=== PATIENT | male | born 1945 | race Caucasian/White ===

== ENCOUNTER 2016-05-15 10:08 | Outpatient (CLI) | payer MEDICARE, OTHER | END 2016-05-15 10:09 | disposition home or self-care (01) | DX: I35.9 Nonrheumatic aortic valve disorder, unspecified (principal) ==

== ENCOUNTER 2016-06-26 11:17 | Outpatient (CLI) | payer MEDICARE, OTHER | END 2016-06-26 11:18 | disposition home or self-care (01) | DX: I35.9 Nonrheumatic aortic valve disorder, unspecified (principal) ==

== ENCOUNTER 2016-07-08 11:45 | Outpatient (CLI) | payer MEDICARE, OTHER | END 2016-07-08 11:46 | DX: R05 Cough (principal); I50.9 Heart failure, unspecified ==

== ENCOUNTER 2016-07-16 12:38 | Outpatient (CLI) | payer MEDICARE, OTHER | END 2016-07-16 12:39 | disposition home or self-care (01) | DX: I50.9 Heart failure, unspecified (principal) ==

== ENCOUNTER 2016-07-23 13:51 | Outpatient (CLI) | payer MEDICARE, OTHER | END 2016-07-23 13:52 | disposition home or self-care (01) | DX: I50.9 Heart failure, unspecified (principal) ==

== ENCOUNTER 2016-08-13 12:56 | Outpatient (CLI) | payer MEDICARE, OTHER | END 2016-08-13 12:57 | disposition home or self-care (01) | DX: I50.9 Heart failure, unspecified (principal) ==

== ENCOUNTER 2016-08-17 09:19 | Outpatient (CLI) | payer MEDICARE, OTHER | END 2016-08-17 09:20 | disposition home or self-care (01) | DX: I35.9 Nonrheumatic aortic valve disorder, unspecified (principal); I50.9 Heart failure, unspecified ==

== ENCOUNTER 2016-10-02 10:34 | Outpatient (CLI) | payer MEDICARE, OTHER ==
[2016-10-02 11:23] LABS: CREATININE 1.4 mg/dL (0.6-1.2)
== END 2016-10-02 10:35 | disposition home or self-care (01) ==
LOC: LAB 10:34
PROVIDERS: ATTEND Internal Medicine Cardiovascular Disease
DX: I35.9 Nonrheumatic aortic valve disorder, unspecified (principal); I50.9 Heart failure, unspecified
CPT/HCPCS: 36415; 80048; 85610

== ENCOUNTER 2016-10-06 10:30 | Outpatient (CLI) | payer MEDICARE, OTHER | END 2016-10-06 10:31 | disposition home or self-care (01) | LOC: LAB 10:30 | PROVIDERS: ATTEND Internal Medicine Cardiovascular Disease | DX: I35.9 Nonrheumatic aortic valve disorder, unspecified (principal) | CPT/HCPCS: 85610 ==

== ENCOUNTER 2016-10-14 10:43 | Outpatient (CLI) | payer MEDICARE, OTHER | END 2016-10-14 10:44 | disposition home or self-care (01) | LOC: LAB 10:43 | PROVIDERS: ATTEND Internal Medicine Cardiovascular Disease | DX: I35.9 Nonrheumatic aortic valve disorder, unspecified (principal) | CPT/HCPCS: 85610 ==

== ENCOUNTER 2016-10-28 10:41 | Outpatient (CLI) | payer MEDICARE, OTHER | END 2016-10-28 10:42 | disposition home or self-care (01) | LOC: LAB 10:41 | PROVIDERS: ATTEND Internal Medicine Cardiovascular Disease | DX: I35.9 Nonrheumatic aortic valve disorder, unspecified (principal) | CPT/HCPCS: 85610 ==

== ENCOUNTER 2016-11-20 09:26 | Outpatient (CLI) | payer MEDICARE, OTHER | END 2016-11-20 09:27 | disposition home or self-care (01) | LOC: LAB 09:26 | PROVIDERS: ATTEND Internal Medicine Cardiovascular Disease | DX: I35.9 Nonrheumatic aortic valve disorder, unspecified (principal) | CPT/HCPCS: 85610 ==

== ENCOUNTER 2017-01-01 11:11 | Outpatient (CLI) | payer MEDICARE, OTHER | END 2017-01-01 11:12 | disposition home or self-care (01) | LOC: LAB 11:11 | PROVIDERS: ATTEND Internal Medicine Cardiovascular Disease | DX: I35.9 Nonrheumatic aortic valve disorder, unspecified (principal) | CPT/HCPCS: 85610 ==

== ENCOUNTER 2017-01-25 10:22 | Outpatient (CLI) | payer MEDICARE, OTHER ==
[2017-01-25 11:13] LABS: CALCIUM 9.5 mg/dL (8.5-10.3); PHOSPHORUS 4.7 mg/dL (2.5-4.6); POTASSIUM 5.2 mmol/L (3.5-5.0)
== END 2017-01-25 10:23 | disposition home or self-care (01) ==
LOC: LAB 10:22
PROVIDERS: ATTEND Internal Medicine Cardiovascular Disease
DX: I50.42 Chronic combined systolic (congestive) and diastolic (congestive) heart failure (principal); N18.3 Chronic kidney disease, stage 3 (moderate)
CPT/HCPCS: 36415; 80069

== ENCOUNTER 2017-02-12 09:54 | Outpatient (CLI) | payer MEDICARE, OTHER | END 2017-02-12 09:55 | disposition home or self-care (01) | LOC: LAB 09:54 | PROVIDERS: ATTEND Internal Medicine Cardiovascular Disease | DX: I35.9 Nonrheumatic aortic valve disorder, unspecified (principal) | CPT/HCPCS: 85610 ==

== ENCOUNTER 2017-02-19 10:58 | Outpatient (CLI) | payer MEDICARE, OTHER | END 2017-02-19 10:59 | disposition home or self-care (01) | LOC: LAB 10:58 | PROVIDERS: ATTEND Internal Medicine Cardiovascular Disease | DX: I35.9 Nonrheumatic aortic valve disorder, unspecified (principal) | CPT/HCPCS: 85610 ==

== ENCOUNTER 2017-03-01 11:01 | Outpatient (CLI) | payer MEDICARE, OTHER | END 2017-03-01 11:02 | disposition home or self-care (01) | LOC: LAB 11:01 | PROVIDERS: ATTEND Internal Medicine Cardiovascular Disease | DX: I35.9 Nonrheumatic aortic valve disorder, unspecified (principal) | CPT/HCPCS: 85610 ==

== ENCOUNTER 2017-03-23 11:24 | Outpatient (CLI) | payer MEDICARE, OTHER ==
[2017-03-23 11:49] LABS: CALCIUM 9.3 mg/dL (8.5-10.3); CREATININE 1.5 mg/dL (0.6-1.2); INR 1.9 (0.8-1.2); POTASSIUM 3.7 mmol/L (3.5-5.0); PT - PROTHROMBIN TIME 21.2 secs (9.9-12.6)
== END 2017-03-23 11:25 | disposition home or self-care (01) ==
LOC: LAB 11:24
PROVIDERS: ATTEND Internal Medicine Cardiovascular Disease
DX: I50.9 Heart failure, unspecified (principal); I48.91 Unspecified atrial fibrillation
CPT/HCPCS: 36415; 80048; 85610

== ENCOUNTER 2017-04-14 10:20 | Outpatient (CLI) | payer MEDICARE, OTHER | END 2017-04-14 10:21 | disposition home or self-care (01) | LOC: LAB 10:20 | PROVIDERS: ATTEND Internal Medicine Cardiovascular Disease | DX: I35.9 Nonrheumatic aortic valve disorder, unspecified (principal) | CPT/HCPCS: 85610 ==

== ENCOUNTER 2017-06-03 10:57 | Outpatient (CLI) | payer MEDICARE, OTHER | END 2017-06-03 10:58 | disposition home or self-care (01) | LOC: LAB 10:57 | PROVIDERS: ATTEND Internal Medicine Cardiovascular Disease | DX: I35.9 Nonrheumatic aortic valve disorder, unspecified (principal) | CPT/HCPCS: 85610 ==

== ENCOUNTER 2017-07-21 10:07 | Outpatient (CLI) | payer MEDICARE, OTHER | END 2017-07-21 10:08 | disposition home or self-care (01) | LOC: LAB 10:07 | PROVIDERS: ATTEND Internal Medicine Cardiovascular Disease | DX: I35.9 Nonrheumatic aortic valve disorder, unspecified (principal) | CPT/HCPCS: 85610 ==

== ENCOUNTER 2017-09-01 10:07 | Outpatient (CLI) | payer MEDICARE, OTHER | END 2017-09-01 10:08 | disposition home or self-care (01) | LOC: LAB 10:07 | PROVIDERS: ATTEND Internal Medicine Cardiovascular Disease | DX: I35.9 Nonrheumatic aortic valve disorder, unspecified (principal) | CPT/HCPCS: 85610 ==

== ENCOUNTER 2017-09-15 10:18 | Outpatient (CLI) | payer MEDICARE, OTHER ==
[2017-09-15 10:44] LABS: CALCIUM 9.4 mg/dL (8.5-10.3); CREATININE 1.8 mg/dL (0.6-1.2)
== END 2017-09-15 10:19 | disposition home or self-care (01) ==
LOC: LAB 10:18
PROVIDERS: ATTEND Internal Medicine Cardiovascular Disease
DX: I10 Essential (primary) hypertension (principal)
CPT/HCPCS: 36415; 80048

== ENCOUNTER 2017-10-01 10:55 | Outpatient (CLI) | payer MEDICARE, OTHER | END 2017-10-01 10:56 | disposition home or self-care (01) | LOC: LAB 10:55 | PROVIDERS: ATTEND Internal Medicine Cardiovascular Disease | DX: I35.9 Nonrheumatic aortic valve disorder, unspecified (principal) | CPT/HCPCS: 85610 ==

== ENCOUNTER 2017-11-12 08:33 | Outpatient (CLI) | payer MEDICARE, OTHER | END 2017-11-12 08:34 | disposition home or self-care (01) | LOC: LAB 08:33 | PROVIDERS: ATTEND Internal Medicine Cardiovascular Disease | DX: I35.9 Nonrheumatic aortic valve disorder, unspecified (principal) | CPT/HCPCS: 85610 ==

== ENCOUNTER 2017-12-31 10:21 | Outpatient (CLI) | payer MEDICARE, OTHER | END 2017-12-31 10:22 | disposition home or self-care (01) | LOC: LAB 10:21 | PROVIDERS: ATTEND Internal Medicine Cardiovascular Disease | DX: I35.9 Nonrheumatic aortic valve disorder, unspecified (principal) | CPT/HCPCS: 85610 ==

== ENCOUNTER 2018-02-14 09:40 | Outpatient (CLI) | payer MEDICARE, OTHER | END 2018-02-14 09:41 | disposition home or self-care (01) | LOC: LAB 09:40 | PROVIDERS: ATTEND Internal Medicine Cardiovascular Disease | DX: I35.9 Nonrheumatic aortic valve disorder, unspecified (principal) | CPT/HCPCS: 85610 ==

== ENCOUNTER 2018-03-10 09:50 | Outpatient (CLI) | payer MEDICARE, OTHER ==
[2018-03-10 10:27] LABS: CREATININE 1.6 mg/dL (0.6-1.2)
== END 2018-03-10 09:51 | disposition home or self-care (01) ==
LOC: LAB 09:50
PROVIDERS: ATTEND Internal Medicine Cardiovascular Disease
DX: I50.9 Heart failure, unspecified (principal); I35.9 Nonrheumatic aortic valve disorder, unspecified
CPT/HCPCS: 36415; 80048; 85610

== ENCOUNTER 2018-04-22 08:53 | Outpatient (CLI) | payer MEDICARE, OTHER | END 2018-04-22 08:54 | disposition home or self-care (01) | LOC: LAB 08:53 | PROVIDERS: ATTEND Internal Medicine Cardiovascular Disease | DX: I35.9 Nonrheumatic aortic valve disorder, unspecified (principal) | CPT/HCPCS: 85610 ==

== ENCOUNTER 2018-06-02 09:38 | Outpatient (CLI) | payer MEDICARE, OTHER | END 2018-06-02 09:39 | disposition home or self-care (01) | LOC: LAB 09:38 | PROVIDERS: ATTEND Internal Medicine Cardiovascular Disease | DX: I35.9 Nonrheumatic aortic valve disorder, unspecified (principal) | CPT/HCPCS: 85610 ==

== ENCOUNTER 2018-06-16 09:25 | Outpatient (CLI) | payer MEDICARE, OTHER | END 2018-06-16 09:26 | disposition home or self-care (01) | LOC: LAB 09:25 | PROVIDERS: ATTEND Internal Medicine Cardiovascular Disease | DX: I35.9 Nonrheumatic aortic valve disorder, unspecified (principal) | CPT/HCPCS: 85610 ==

== ENCOUNTER 2018-07-07 14:07 | Outpatient (CLI) | payer MEDICARE, OTHER | END 2018-07-07 14:08 | disposition home or self-care (01) | LOC: LAB 14:07 | PROVIDERS: ATTEND Internal Medicine Cardiovascular Disease | DX: I35.9 Nonrheumatic aortic valve disorder, unspecified (principal) | CPT/HCPCS: 85610 ==

== ENCOUNTER 2018-08-18 10:05 | Outpatient (CLI) | payer MEDICARE, OTHER | END 2018-08-18 10:06 | disposition home or self-care (01) | LOC: LAB 10:05 | PROVIDERS: ATTEND Internal Medicine Cardiovascular Disease | DX: I35.9 Nonrheumatic aortic valve disorder, unspecified (principal) | CPT/HCPCS: 85610 ==

== ENCOUNTER 2018-09-29 10:26 | Outpatient (CLI) | payer MEDICARE, OTHER ==
[2018-09-29 11:08] LABS: CREATININE 1.7 mg/dL (0.6-1.2)
== END 2018-09-29 10:27 | disposition home or self-care (01) ==
LOC: LAB 10:26
PROVIDERS: ATTEND Internal Medicine Cardiovascular Disease
DX: I35.9 Nonrheumatic aortic valve disorder, unspecified (principal); I50.9 Heart failure, unspecified
CPT/HCPCS: 36415; 80048; 85610

== ENCOUNTER 2018-11-09 08:00 | Outpatient (CLI) | payer MEDICARE, OTHER | END 2018-11-09 23:59 | disposition home or self-care (01) | LOC: LAB 08:00 | PROVIDERS: ATTEND Internal Medicine Cardiovascular Disease | DX: I35.9 Nonrheumatic aortic valve disorder, unspecified (principal) | CPT/HCPCS: 85610 ==

== ENCOUNTER 2018-12-22 10:20 | Outpatient (CLI) | payer MEDICARE, OTHER | END 2018-12-22 10:21 | disposition home or self-care (01) | LOC: LAB 10:20 | PROVIDERS: ATTEND Internal Medicine Cardiovascular Disease | DX: I35.9 Nonrheumatic aortic valve disorder, unspecified (principal) | CPT/HCPCS: 85610 ==

== ENCOUNTER 2019-02-02 10:40 | Outpatient (CLI) | payer MEDICARE, OTHER | END 2019-02-02 10:41 | disposition home or self-care (01) | LOC: LAB 10:40 | PROVIDERS: ATTEND Internal Medicine Cardiovascular Disease | DX: I35.9 Nonrheumatic aortic valve disorder, unspecified (principal) | CPT/HCPCS: 85610 ==

== ENCOUNTER 2019-02-17 10:11 | Outpatient (CLI) | payer MEDICARE, OTHER | END 2019-02-17 10:12 | disposition home or self-care (01) | LOC: LAB 10:11 | PROVIDERS: ATTEND Internal Medicine Cardiovascular Disease | DX: I35.9 Nonrheumatic aortic valve disorder, unspecified (principal) | CPT/HCPCS: 85610 ==

== ENCOUNTER 2019-03-27 09:58 | Outpatient (CLI) | payer MEDICARE, OTHER ==
[2019-03-27 10:43] LABS: CALCIUM 9.4 mg/dL (8.5-10.3)
== END 2019-03-27 09:59 | disposition home or self-care (01) ==
LOC: LAB 09:58
PROVIDERS: ATTEND Internal Medicine Cardiovascular Disease
DX: I35.9 Nonrheumatic aortic valve disorder, unspecified (principal); I50.9 Heart failure, unspecified
CPT/HCPCS: 36415; 80048; 85610

== ENCOUNTER 2019-05-04 10:03 | Outpatient (CLI) | payer MEDICARE, OTHER | END 2019-05-04 10:04 | disposition home or self-care (01) | LOC: LAB 10:03 | PROVIDERS: ATTEND Internal Medicine Cardiovascular Disease | DX: Z53.9 Procedure and treatment not carried out, unspecified reason (principal) ==

== ENCOUNTER 2019-05-04 10:08 | Outpatient (CLI) | payer MEDICARE, OTHER | END 2019-05-04 10:09 | disposition home or self-care (01) | LOC: LAB 10:08 | PROVIDERS: ATTEND Internal Medicine Cardiovascular Disease | DX: I35.9 Nonrheumatic aortic valve disorder, unspecified (principal) | CPT/HCPCS: 85610 ==

== ENCOUNTER 2019-05-19 13:52 | Outpatient (CLI) | payer MEDICARE, OTHER | END 2019-05-19 13:53 | disposition home or self-care (01) | LOC: DI 13:52 | PROVIDERS: ATTEND Internal Medicine Cardiovascular Disease | DX: I50.9 Heart failure, unspecified (principal); I51.7 Cardiomegaly | CPT/HCPCS: 93306 ==

== ENCOUNTER 2019-05-22 15:18 | Outpatient (CLI) | payer MEDICARE, OTHER ==
[2019-05-22 15:41] LABS: CALCIUM 9.1 mg/dL (8.5-10.3); CREATININE 2.4 mg/dL (0.6-1.2)
== END 2019-05-22 15:19 | disposition home or self-care (01) ==
LOC: LAB 15:18
PROVIDERS: ATTEND Internal Medicine
DX: I50.9 Heart failure, unspecified (principal)
CPT/HCPCS: 36415; 80048

== ENCOUNTER 2019-06-02 11:24 | Outpatient (CLI) | payer MEDICARE, OTHER ==
[2019-06-02 12:10] LABS: BASOPHILS % (AUTO) 0.3 %; EOSINOPHILS # (AUTO) 0.3 10^3/uL (0.0-0.7); EOSINOPHILS % (AUTO) 3.8 %; HGB - HEMOGLOBIN 11.5 g/dL (14.0-18.0); LYMPHOCYTES # (AUTO) 0.9 10^3/uL (1.5-3.5); LYMPHOCYTES % (AUTO) 14.1 %; MEAN CORPUSCULAR HEMOGLOBIN 30.2 pg (27.0-31.0); MEAN CORPUSCULAR HGB CONC 31.3 g/dL (32.0-36.0); MEAN CORPUSCULAR VOLUME 96.6 fL (80.0-94.0); MEAN PLATELET VOLUME 11.7 fL (7.4-11.4); MONOCYTES % (AUTO) 14.7 %; NEUTROPHILS # (AUTO) 4.4 10^3/uL (1.5-6.6); NEUTROPHILS % (AUTO) 66.6 %; PLT - PLATELET COUNT 174 10^3/uL (130-450); RED BLOOD COUNT 3.81 10^6/uL (4.70-6.10); RED CELL DISTRIBUTION WIDTH 16.1 % (12.0-15.0); WHITE BLOOD COUNT 6.6 x10^3/uL (4.8-10.8)
[2019-06-02 13:20] LABS: ALBUMIN 3.9 g/dL (3.2-5.5); ALBUMIN/GLOBULIN RATIO 1.3 (1.0-2.2); ALKALINE PHOSPHATASE 61 IU/L (42-121); ALT ALANINE AMINOTRANSFERASE 61 IU/L (10-60); AST ASPARTATE AMINOTRANSFERASE 42 IU/L (10-42); BILIRUBIN,TOTAL 1.4 mg/dL (0.2-1.0); CALCIUM 9.2 mg/dL (8.5-10.3); CARBON DIOXIDE - CO2 29 mmol/L (21-32); CHLORIDE 95 mmol/L (101-111); CHOL/HDL RATIO 2.5 (<5.0); CHOLESTEROL 49 mg/dL; CREATININE 2.3 mg/dL (0.6-1.2); GFR - MDRD 28 (>89); GLUCOSE 98 mg/dL (70-100); HDL CHOLESTEROL 20 mg/dL; LDL CHOLESTEROL,CALCULATED 20 mg/dL; SODIUM 139 mmol/L (135-145); VLDL CHOLESTEROL 9 mg/dL
[2019-06-02 13:23] LABS: BUN - BLOOD UREA NITROGEN 94 mg/dL (6-20)
== END 2019-06-02 11:25 | disposition home or self-care (01) ==
LOC: LAB 11:24
PROVIDERS: ATTEND Internal Medicine Cardiovascular Disease
DX: I50.9 Heart failure, unspecified (principal); Z95.2 Presence of prosthetic heart valve; E78.5 Hyperlipidemia, unspecified
CPT/HCPCS: 36415; 80053; 80061; 83721; 83880; 85025

== ENCOUNTER 2019-06-05 10:37 | Outpatient (CLI) | payer MEDICARE, OTHER ==
[2019-06-05 12:17] LABS: CALCIUM 9.2 mg/dL (8.5-10.3); CREATININE 2.1 mg/dL (0.6-1.2)
== END 2019-06-05 10:38 | disposition home or self-care (01) ==
LOC: LAB 10:37
PROVIDERS: ATTEND Internal Medicine Cardiovascular Disease
DX: I50.9 Heart failure, unspecified (principal)
CPT/HCPCS: 36415; 80048

== ENCOUNTER 2019-06-22 13:40 | Outpatient (CLI) | payer MEDICARE, OTHER ==
[2019-06-22 14:58] LABS: BUN - BLOOD UREA NITROGEN 72 mg/dL (6-20); CALCIUM 9.1 mg/dL (8.5-10.3); CARBON DIOXIDE - CO2 27 mmol/L (21-32); CHLORIDE 100 mmol/L (101-111); CREATININE 2.1 mg/dL (0.6-1.2); DIGOXIN 1.4 ng/mL; GFR - MDRD 31 (>89); GLUCOSE 103 mg/dL (70-100); SODIUM 137 mmol/L (135-145)
== END 2019-06-22 13:41 | disposition home or self-care (01) ==
LOC: LAB 13:40
PROVIDERS: ATTEND Internal Medicine Cardiovascular Disease
DX: I50.9 Heart failure, unspecified (principal)
CPT/HCPCS: 36415; 80048; 80162; 83880

== ENCOUNTER 2019-06-29 15:44 | Outpatient (CLI) | payer MEDICARE, OTHER ==
[2019-06-29 16:53] LABS: BUN - BLOOD UREA NITROGEN 53 mg/dL (6-20); CALCIUM 8.8 mg/dL (8.5-10.3); CARBON DIOXIDE - CO2 27 mmol/L (21-32); CHLORIDE 103 mmol/L (101-111); CREATININE 1.9 mg/dL (0.6-1.2); DIGOXIN 1.5 ng/mL; GFR - MDRD 35 (>89); GLUCOSE 97 mg/dL (70-100); SODIUM 140 mmol/L (135-145)
== END 2019-06-29 15:45 | disposition home or self-care (01) ==
LOC: LAB 15:44
PROVIDERS: ATTEND Internal Medicine Cardiovascular Disease
DX: I50.9 Heart failure, unspecified (principal); I35.9 Nonrheumatic aortic valve disorder, unspecified
CPT/HCPCS: 36415; 80048; 80162; 83880; 85610

== ENCOUNTER 2019-07-10 14:58 | Outpatient (CLI) | payer MEDICARE, OTHER ==
[2019-07-10 15:45] LABS: CALCIUM 9.2 mg/dL (8.5-10.3); CREATININE 1.9 mg/dL (0.6-1.2); MAGNESIUM 2.5 mg/dL (1.7-2.8)
== END 2019-07-10 14:59 | disposition home or self-care (01) ==
LOC: LAB 14:58
PROVIDERS: ATTEND Internal Medicine Cardiovascular Disease
DX: I35.9 Nonrheumatic aortic valve disorder, unspecified (principal); I50.9 Heart failure, unspecified; I42.8 Other cardiomyopathies
CPT/HCPCS: 36415; 80048; 83735; 85610

== ENCOUNTER 2019-07-20 15:19 | Outpatient (CLI) | payer MEDICARE, OTHER | END 2019-07-20 15:20 | disposition home or self-care (01) | LOC: LAB 15:19 | PROVIDERS: ATTEND Internal Medicine Cardiovascular Disease | DX: I35.9 Nonrheumatic aortic valve disorder, unspecified (principal) | CPT/HCPCS: 85610 ==

== ENCOUNTER 2019-07-29 19:33 | Outpatient (CLI) | payer MEDICARE, OTHER | END 2019-07-29 19:34 | disposition critical access hospital (66) | LOC: EMS 19:33 | PROVIDERS: ATTEND Surgery | DX: R05 Cough (principal); R09.89 Other specified symptoms and signs involving the circulatory and respiratory systems; R53.1 Weakness | CPT/HCPCS: A0425; A0429 ==

== ENCOUNTER 2019-07-29 19:48 | Inpatient (IN) | payer MEDICARE, OTHER ==
--- NOTE | 2019-07-29 19:46 | ED Physician Documentation ---
History of Present Illness - Stated complaint Stated Complaint: COUGH - History obtained from History obtained from: Patient, EMS (the patient is a 73 y/o male with a hx of aortic valve replacement complains of worsening cough, congestion, sob over the last 1-2 days. he reports subjective chills and fevers and cough. denies recent travel outside the country, fleming/neck pain/rashes. reports worsening le edema, productive cough. he does take coumadin as well as dig.) Review of Systems Constitutional: reports: Fever, Chills, Myalgias, Reviewed and negative Eyes: reports: Reviewed and negative Ears: reports: Reviewed and negative Nose: reports: Reviewed and negative Throat: reports: Reviewed and negative Cardiac: reports: Palpitations Respiratory: reports: Dyspnea, Cough, Wheezing GI: reports: Reviewed and negative : reports: Reviewed and negative Skin: reports: Reviewed and negative Musculoskeletal: reports: Reviewed and negative Neurologic: reports: Reviewed and negative Psychiatric: reports: Reviewed and negative Endocrine: reports: Reviewed and negative Immunocompromised: reports: Reviewed and negative PD PAST MEDICAL HISTORY - Present Medications Home Medications: Ambulatory Orders Medication Instructions Recorded Confirmed Warfarin [Coumadin] 10 mg PO DAILY 04/16/13 07/29/19 carvediloL [Coreg] 6.25 mg PO BID 04/16/13 07/29/19 Cyclobenzaprine [Flexeril] 10 mg TID PRN 07/29/19 07/29/19 Digoxin [Lanoxin] 125 mcg PO DAILY 07/29/19 07/29/19 Losartan Potassium [Cozaar] 50 mg DAILY 07/29/19 07/29/19 Simvastatin 40 mg DAILY 07/29/19 07/29/19 Torsemide 80 mg DAILY 07/29/19 07/29/19 traMADol [Ultram] 50 mg QID PRN 07/29/19 07/29/19 - Allergies Allergies/Adverse Reactions: Allergies Allergy/AdvReac Type Severity Reaction Status Date / Time No Known Drug Allergies Allergy Verified 07/29/19 19:57 PD ED PE NORMAL - Vitals Vital signs reviewed: Yes - General General: Alert and oriented X 3, Other (ill but non toxic appearing 73 y/o m actively coughing and sob) - HEENT HEENT: Atraumatic, PERRL - Neck Neck: Supple, no meningeal sign, No JVD - Cardiac Cardiac: No murmur, Strong equal pulses, Other (irregular rhythm) - Respiratory Respiratory: Other (diffuse crackles throughout bilateral lung [place], trachea midline. 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, No motor deficit, No sensory deficit, Normal speech - Psych Psych: Normal mood, Normal affect Results - Vitals Vitals: Vital Signs - 24 hr 07/29/19 07/29/19 07/29/19 19:56 20:38 20:57 Temperature 36.4 C L 36.1 C L Heart Rate 67 76 74 Respiratory 18 19 14 Rate Blood Pressure 109/62 96/68 94/71 O2 Saturation 94 95 96 07/29/19 21:20 Temperature Heart Rate Respiratory Rate Blood Pressure O2 Saturation 86 L Oxygen O2 Source Room air Oxygen Flow Rate 2 - EKG (time done) 20:09 Rate: Other (no stemi) - Labs Labs: Laboratory Tests 07/29/19 07/29/19 07/29/19 20:18 20:18 20:18 WBC 4.9 RBC 4.30 L Hgb 12.5 L Hct 40.0 L MCV 93.0 MCH 29.1 MCHC 31.3 L RDW 18.4 H Plt Count 142 MPV 11.9 H Neut # (Auto) 3.0 Lymph # (Auto) 1.0 L [place] # (Auto) 0.8 Eos # (Auto) 0.1 Baso # (Auto) 0.0 Absolute Nucleated RBC 0.00 Nucleated RBC % 0.0 PT 44.0 H INR 4.2 H APTT 50.0 H Sodium 134 L Potassium 4.0 Chloride 94 L Carbon Dioxide 27 Anion Gap 13.0 BUN 73 H Creatinine 2.7 H Estimated GFR (MDRD) 23 L Glucose 108 H Lactic Acid Calcium 8.8 Magnesium 2.4 Total Bilirubin 1.5 H Direct Bilirubin AST 31 ALT 16 Alkaline Phosphatase 121 Total Creatine Kinase 162 Troponin I High Sens B-Natriuretic Peptide Total Protein 7.1 Albumin 3.6 Globulin 3.5 Albumin/Globulin Ratio 1.0 Lipase 34 Urine Color Urine Clarity Urine pH Ur Specific [place] Urine Protein Urine Glucose (UA) Urine Ketones Urine Occult Blood Urine Nitrite Urine Bilirubin Urine Urobilinogen Ur Leukocyte Esterase Ur Microscopic Review Urine Culture Comments Last Dose Date Last Dose Time Digoxin Influenza A (Rapid) Influenza B (Rapid) 07/29/19 07/29/19 07/29/19 20:18 20:18 20:18 WBC RBC Hgb Hct MCV MCH MCHC RDW Plt Count MPV Neut # (Auto) Lymph # (Auto) [place] # (Auto) Eos # (Auto) Baso # (Auto) Absolute Nucleated RBC Nucleated RBC % PT INR APTT Sodium Potassium Chloride Carbon Dioxide Anion Gap BUN Creatinine Estimated GFR (MDRD) Glucose Lactic Acid 2.4 H Calcium Magnesium Total Bilirubin Direct Bilirubin 0.7 H AST ALT Alkaline Phosphatase Total Creatine Kinase Troponin I High Sens B-Natriuretic Peptide 1197 H Total Protein Albumin Globulin Albumin/Globulin Ratio Lipase Urine Color Urine Clarity Urine pH Ur Specific [place] Urine Protein Urine Glucose (UA) Urine Ketones Urine Occult Blood Urine Nitrite Urine Bilirubin Urine Urobilinogen Ur Leukocyte Esterase Ur Microscopic Review Urine Culture Comments Last Dose Date UNKNOWN Last Dose Time UNKNOWN Digoxin 2.2 Influenza A (Rapid) Influenza B (Rapid) 07/29/19 07/29/19 07/29/19 20:18 20:30 20:45 WBC RBC Hgb Hct MCV MCH MCHC RDW Plt Count MPV Neut # (Auto) Lymph # (Auto) [place] # (Auto) Eos # (Auto) Baso # (Auto) Absolute Nucleated RBC Nucleated RBC % PT INR APTT Sodium Potassium Chloride Carbon Dioxide Anion Gap BUN Creatinine Estimated GFR (MDRD) Glucose Lactic Acid Calcium Magnesium Total Bilirubin Direct Bilirubin AST ALT Alkaline Phosphatase Total Creatine Kinase Troponin I High Sens 109.5 H* B-Natriuretic Peptide Total Protein Albumin Globulin Albumin/Globulin Ratio Lipase Urine Color YELLOW Urine Clarity CLEAR Urine pH 5.0 Ur Specific [place] 1.020 Urine Protein TRACE Urine Glucose (UA) NEGATIVE Urine Ketones NEGATIVE Urine Occult Blood NEGATIVE Urine Nitrite NEGATIVE Urine Bilirubin NEGATIVE Urine Urobilinogen 0.2 (NORMAL) Ur Leukocyte Esterase NEGATIVE Ur Microscopic Review NOT INDICATED Urine Culture Comments NOT INDICATED Last Dose Date Last Dose Time Digoxin Influenza A (Rapid) Negative Influenza B (Rapid) Negative PD MEDICAL DECISION MAKING - ED course Complexity details: reviewed old records, reviewed results, re-evaluated patient (21:25 ambulated patient he is hypoxic on room air anywhere from 70-80s on room air, patient tachypneic and sob ambulating.), considered differential (ACS, PNA, FLU, CHF, PULM EDEMA, NOELLE, ARF, PE, PLEURAL EFFUSIONS, DVT. ), d/w patient, d/w oracle distribution consultant - Consults Consults: Consulted (name) (dr. reyes), Discussed case with, Request oracle distribution consultant evaluate patient, Request oracle distribution consultant admit patient (will admit) - Critical Care Time Includes: Direct patient care, Review records, Reassess patient, Document care, Coordinate care, Medical consult Data interpretation: Labs, Pulse ox, CXR Procedures included in critical care time: Peripheral IV Procedures excluded from critical care time: EKG Departure - Departure Disposition: 66 [facility] DC/Xfer Clinical Impression: Hypoxia, Acute kidney injury CHF (congestive heart failure) Qualifiers: Heart failure type: unspecified Heart failure chronicity: unspecified Qualified Code(s): I50.9 - Heart failure, unspecified Condition: Stable
[2019-07-29 20:27] LABS: BASOPHILS % (AUTO) 0.2 %; EOSINOPHILS # (AUTO) 0.1 10^3/uL (0.0-0.7); EOSINOPHILS % (AUTO) 2.8 %; HGB - HEMOGLOBIN 12.5 g/dL (14.0-18.0); LYMPHOCYTES % (AUTO) 19.3 %; MEAN CORPUSCULAR HEMOGLOBIN 29.1 pg (27.0-31.0); MEAN CORPUSCULAR HGB CONC 31.3 g/dL (32.0-36.0); MEAN PLATELET VOLUME 11.9 fL (7.4-11.4); MONOCYTES # (AUTO) 0.8 10^3/uL (0.0-1.0); MONOCYTES % (AUTO) 16.6 %; NEUTROPHILS % (AUTO) 60.5 %; PLT - PLATELET COUNT 142 10^3/uL (130-450); RED CELL DISTRIBUTION WIDTH 18.4 % (12.0-15.0); WHITE BLOOD COUNT 4.9 x10^3/uL (4.8-10.8)
[2019-07-29 20:32] LABS: INR 4.2 (0.8-1.2)
[2019-07-29 20:49] LABS: BILIRUBIN,URINE NEGATIVE (NEGATIVE); GLUCOSE, URINE (UA) NEGATIVE (NEGATIVE); KETONES,URINE (UA) NEGATIVE (NEGATIVE); LEUKOCYTE ESTERASE, URINE NEGATIVE (NEGATIVE); NITRITE,URINE NEGATIVE (NEGATIVE); OCCULT BLOOD,URINE NEGATIVE (NEGATIVE); PROTEIN,URINE TRACE mg/dL (NEGATIVE); UROBILINOGEN,URINE 0.2 (NORMAL) E.U./dL (NORMAL)
[2019-07-29 20:50] LABS: BILIRUBIN,DIRECT 0.7 mg/dL (0.1-0.5); DIGOXIN 2.2 ng/mL
[2019-07-29 20:52] LABS: CLARITY,URINE CLEAR (CLEAR)
[2019-07-29 20:59] LABS: ALBUMIN 3.6 g/dL (3.2-5.5); BILIRUBIN,TOTAL 1.5 mg/dL (0.2-1.0); CALCIUM 8.8 mg/dL (8.5-10.3); CREATININE 2.7 mg/dL (0.6-1.2); MAGNESIUM 2.4 mg/dL (1.7-2.8); TOTAL PROTEIN 7.1 g/dL (6.7-8.2)
--- NOTE | 2019-07-29 21:04 | XRAY Report ---
Reason: cough Procedure Date: 07/29/2019 Accession Number: [id number] / [id number] Procedure: XR - Chest 1 View X-Ray CPT Code: 41741 Final Report FULL RESULT: EXAM: CHEST RADIOGRAPHY EXAM DATE: 07/29/2019 08:28 PM. CLINICAL HISTORY: Cough. COMPARISON: CHEST 2 VIEW PA/LAT 01/01/2017 3:36 PM. TECHNIQUE: 1 view. FINDINGS: Lungs/Pleura: Stable linear atelectasis or scarring in right mid to upper lung. Mild atelectasis or scarring at right lung base. No new pulmonary opacities. No pulmonary edema. No pleural effusion or pneumothorax. Mediastinum: Stable moderate enlargement of cardiac silhouette. Postsurgical changes of the chest. Cardiac device in stable position. Other: None. IMPRESSION: 1. Probable atelectasis and scarring in the right lung, similar compared to previous radiograph. No definite new focal opacities. 2. Cardiomegaly and cardiac device. RADIA
[2019-07-29] MEDS ORDERED: FUROSEMIDE 40 MG/4 ML VIAL IVP STA ×2 (21:22→21:38)
[2019-07-29] MEDS ORDERED: ONDANSETRON 4 MG/2 ML VIAL IVP PRN (21:29)
--- NOTE | 2019-07-29 21:41 | HISTORY & PHYSICAL EXAMINATION ---
Chief Complaint - Chief Complaint Chief Complaint: Cough History of Present Illness - Admitted From Admitted From:: Home - History Obtained From Records Reviewed: Yes History obtained from: Patient, ER Physician, EMR - History of Present Illness HPI Comment/Other: This is a 73-year-old male with a history of what appears to be idiopathic cardiomyopathy, chronic systolic heart failure with an EF of 15 to 20% status post ICD, history of aortic valve replacement with mechanical valve on coumadin, paroxysmal atrial fibrillation, chronic kidney disease who presents today complaining of a worsening cough over the past 2 to 3 days. He states his cough began about 3 days ago and he has occasional sputum production. He reports no dyspnea but states he has not gotten to ambulate as much as he would like as he has just felt a little weak and the cough has been quite bothersome. He reports that he normally sleeps on his side but lately he has been sleeping upright due to the cough. He has also noticed some worsening lower extremity edema. He r eports no chest pain, fevers, chills. He denies any recent sick contacts or travel. 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 Velasquez. Patient reports he has been compliant with medications he took torsemide 80 mg earlier today. He states he has not really been eating much because he is in the process of getting new dentures or implants. He tells me that his previous dry weight was 165 lbs but that he is currently now 163 lbs despite his worsening lower extremity edema. He feels like he has been losing weight due to his poor oral intake. He states that his cardiomyopathy is of an unknown etiology. He denies any history of heart disease and denies a history of CABG or stents in the past. His INR is elevated and he states this has been poorly controlled since his decreased oral intake. He reports no recent bleeding. In the emergency department, he was found to be afebrile with temperature of 3 6.1 C. His heart was in the 70s and he was in a paced rhythm. Blood pressure was stable at 94/71. He was initially saturating well on room air but when he ambulated, his oxygen saturation dipped into the 70s and 80s on room air. This has improved to the mid 90s on 2 L of oxygen via nasal cannula. Lab revealed a sodium of 134, BUN of 73, creatinine of 2.7. His lactic acid is mildly elevated at 2.4. His BNP is elevated at 1197 and his troponin is 109.5. Influenza was negative. Given his hypoxia with exertion, medicine was consulted for admission. He did receive 40 mg of IV Lasix in the emergency department. I did discuss goals of care the patient he would like to be a full code. History - Past Medical History Cardiovascular: reports: Congestive heart failure, Hypertension, High choles terol, Atrial fibrillation, Valve disorder MRSA Hx?: No - Past Surgical History Cardiovascular: reports: Valve replacement (Mechanical AV. [facility] in 2009 at [facility] in [place].), Pacemaker, AICD - Family & Social History Family History Comment/Other: He does not recall any family history to his knowledge. Living arrangement: At home Living Situation: With family Social History Notes: He lives at home and his daughter is currently staying with him. He denies smoking and alcohol use. He previously worked for [employer]. He retired 12 years ago. - Substance History Use: Uses substance without health or social issues: NONE - POLST Patient has POLST: No Meds/Allgy - Home Medications Home Medications: Ambulatory Orders Medication Instructions Recorded Confirmed Warfarin [Coumadin] 10 mg PO DAILY 04/16/13 07/29/19 carvediloL [Coreg] 6.25 mg PO BID 04/16/13 07/29/19 Cyclobenzaprine [Flexeril] 10 mg TID PRN 07/29/19 07/29/19 Digoxin [Lanoxin] 125 mcg PO DAILY 07/29/19 07/29/19 Losartan Potassium [Cozaar] 50 mg DAILY 07/29/19 07/29/19 Simvastatin 40 mg DAILY 07/29/19 07/29/19 Torsemide 80 mg DAILY 07/29/19 07/29/19 traMADol [Ultram] 50 mg QID PRN 07/29/19 07/29/19 - Allergies Allergies/Adverse Reactions: Allergies Allergy/AdvReac Type Severity Reaction Status Date / Time No Known Drug Allergies Allergy Verified 07/29/19 19:57 Review of Systems - Constitutional Constitutional: reports: Weakness, Poor appetite, Weight loss. denies: Fever, Chills - Cardiovascular Cariovascular: reports: Edema. denies: Chest pain, Exertional dyspnea, Decr. exercise tolerance - Respiratory Respiratory: reports: Cough, Sputum production, Orthopnea. denies: SOB at rest, SOB with exertion - Gastrointestinal Gastrointestinal: denies: Abdominal pain, Constipation, Diarrhea, Nausea, Vomiting - Genitourinary Genitourinary: reports: Frequency. denies: Dysuria, Urgency - Musculoskeletal Musculoskeletal: denies: Muscle pain, Muscle weakness - Integumentary Integumentary: denies: Rash - Neurological Neurological: denies: General weakness, Focal weakness - Endocrine Endocrine: reports: Polyuria - Hematologic/Lymphatic Hematologic/Lymphatic: denies: Anemia, Bruising, Bleeding tendencies Prior Level of Functionality: He states that he is normally independent with his ADLs. Exam - Vital Signs Reviewed Vital Signs: Yes Vital Signs: Vital Signs x48h Temp Pulse Resp BP Pulse Ox 07/29/19 21:31 77 22 106/65 98 07/29/19 21:20 86 L 07/29/19 20:57 36.1 C L 74 14 94/71 96 07/29/19 20:38 76 19 96/68 95 07/29/19 19:56 36.4 C L 67 18 109/62 94 - Physical Exam General Appearance: positive: No acute distress, Alert Eyes Bilateral: positive: Normal inspection ENT: positive: ENT inspection nml Neck: positive: Nml inspection Respiratory: positive: No respiratory distress, Other (Has multiple episodes of coughing fits while speaking to him. Diminished breath sounds.) Cardiovascular: positive: Irregularly irregular, Other (Mechanical heart valve click present.). negative: Tachycardia, Bradycardia Abdomen: positive: Non-tender, Nml bowel sounds, No distention. negative: Tenderness Skin: positive: No rash, Warm, Dry, Other (He has chronic dermatitis over his bilateral lower extremities. There is approximately 4 x 3 cm ulceration over the medial aspect of his left lower extremity superior to the ankle. No purulent discharge or tenderness.) Extremities: positive: Full ROM, Pedal edema (He has +2 to +3 pitting edema in his bilateral lower extremities from his feet up to his knees) Neurologic/Psychiatric: positive: Oriented x3, Motor nml. negative: Disoriented to person, Disoriented to place, Disoriented to time Conclusion/Plan - Problem List (1) Acute on chronic systolic heart failure Conclusion/Plan: Suspect this is the cause of his hypoxia and dyspnea on exertion. His BNP is elevated at nearly 1200 which is improved compared to late June but still above his baseline of what appears to be around 600. His chest x-ray does not show any obvious pulmonary edema or vascular congestion but he does have significant lower extremity edema and orthopnea. He was given 40 mg's IV in the emergency department we will give him another 20mg IV given his creatinine is elevated at 2.7. We will continue him on 60 mg twice daily. We will continue his home carvedilol but hold losartan given his acute kidney injury. We will continue supplemental oxygen to maintain oxygen saturation greater than 92%. Low-sodium diet and fluid restriction of 2 L. BNP in the morning. (2) Hypoxia Conclusion/Plan: He was hypoxic in the 70s and 80s on room air which improved to the mid 90s on 2 L of oxygen via nasal cannula. Suspect this secondary to heart failure exacerbation. No obvious infiltrate on x-ray to suggest pneumonia. We will continue to diurese him with IV Lasix and wean him off oxygen as tolerated. (3) Elevated troponin Conclusion/Plan: Troponin is elevated 109.5 but he reports no chest pain. EKG showed a ventricular paced rhythm. Suspect this is likely demand ischemia given the heart failure and acute kidney injury. He reports no prior history of heart disease, CABG, cardiac stenting. He did have a stress test over 5 years ago which did not suggest ischemia. He is not on aspirin at home. We will continue to trend his troponin and monitor him on telemetry. (4) Acute kidney injury superimposed on CKD Conclusion/Plan: Creatinine is elevated at 2.7 and his baseline appears to be around 2-2.3. Suspect this is likely prerenal acute kidney injury from heart failure. We will diuresis with IV Lasix and monitor his renal function and urine output. We will hold his losartan for the time being. (5) Cardiomyopathy Conclusion/Plan: He tells me this is idiopathic cardiomyopathy. His last echocardiogram on May 19, 2019 showed a severely dilated left ventricle with an EF of 15-20%. He also had severe RV dilatation with severely reduced systolic function. His bioprosthetic aortic valve appeared to be functioning normally. He did have m oderate mitral regurgitation and severe tricuspid regurgitation. Given he had an echocardiogram 2 months ago, there likely is no indication to repeat another one. We will continue to treat his heart failure as mentioned above. He does follow with Dr. Velasquez of cardiology here at the [facility]. (6) Elevated INR Conclusion/Plan: His INR is elevated at 4.2. There is no evidence of bleeding. We will hold his Coumadin and monitor his INR on a daily basis. No role for vitamin K at this point. (7) Paroxysmal atrial fibrillation Conclusion/Plan: He has a history of atrial fibrillation and he is on Coumadin. He is currently ventricularly paced. We will continue his digoxin and carvedilol. Monitor on telemetry. (8) History of aortic valve replacement with bioprosthetic valve Conclusion/Plan: History of mechanical aortic valve replacement back in 2008 at [facility] in [place]. This is a [facility] mechanical aortic valve. Last echocardiogram showed it is functioning normally. He is on Coumadin which will be held for the time being given his supratherapeutic INR. Goal INR is 2.5-3.5 - Lab Results Lab results reviewed: Yes Omar Bones: 07/29/19 20:18 07/29/19 20:18 - Diagnostic Imaging Results Diagnostic Imaging Results: positive: Final report reviewed - EKG Results EKG Interpreted Independently: Yes EKG Findings: EKG shows a ventricularly paced rhythm. Core Measures - Anticipated LOS I expect patient to be DC'd or transferred within 96 hours.: Yes - Issues Hospital Issues and Management Plan: 73-year-old male with chronic systolic heart failure and what appears to be id iopathic cardiomyopathy presents with a cough. He is on to be hypoxic with exertion likely from acute on chronic heart failure. We will admit him for IV diuresis. - DVT/VTE - Prophylaxis VTE/DVT Device ordered at admit?: Yes VTE/DVT Prophylaxis med ordered at admit?: No Not Ordered - Medical Reason: Not indicated
--- NOTE | 2019-07-29 23:03 | Ultrasound Report ---
Reason: leg swelling dvt Procedure Date: 07/29/2019 Accession Number: [id number] / [id number] Procedure: US - Duplex Ext Veins Bilateral CPT Code: Final Report FULL RESULT: EXAM: BILATERAL LOWER EXTREMITY VENOUS ULTRASOUND EXAM DATE: 07/29/2019 10:45 PM. CLINICAL HISTORY: Leg swelling. COMPARISON: None. TECHNIQUE: Real-time sonographic vascular imaging was performed by the stereoptic projection topographer through the lower extremities utilizing both color-flow and Doppler spectral analysis. Multiple customer development representative static images were saved for review. FINDINGS: Right: Common Femoral Vein (CFV): No evidence of thrombus. CFV-GSV Junction: No evidence of thrombus. Profunda Femoral Vein (PFV): No evidence of thrombus. Femoral Vein (FV) Prox: No evidence of thrombus. Femoral Vein (FV) Mid: No evidence of thrombus. Femoral Vein (FV) Dist: No evidence of thrombus. Popliteal Vein: No evidence of thrombus. Posterior Tibial Veins: No evidence of thrombus. Peroneal Veins: No evidence of thrombus. Left: Common Femoral Vein (CFV): No evidence of thrombus. CFV-GSV Junction: No evidence of thrombus. Profunda Femoral Vein (PFV): No evidence of thrombus. Femoral Vein (FV) Prox: No evidence of thrombus. Femoral Vein (FV) Mid: No evidence of thrombus. Femoral Vein (FV) Dist: No evidence of thrombus. Popliteal Vein: No evidence of thrombus. Posterior Tibial Veins: No evidence of thrombus. Peroneal Veins: No evidence of thrombus. Other: None. IMPRESSION: No evidence for deep venous thrombosis. RADIA
[2019-07-30] MEDS: BENZONATATE 100 MG CAPSULE PO PRN ×3 (00:28→16:09)
[2019-07-30 04:59] LABS: BASOPHILS % (AUTO) 0.4 %; EOSINOPHILS # (AUTO) 0.2 10^3/uL (0.0-0.7); EOSINOPHILS % (AUTO) 3.7 %; HGB - HEMOGLOBIN 12.5 g/dL (14.0-18.0); LYMPHOCYTES # (AUTO) 1.1 10^3/uL (1.5-3.5); MEAN CORPUSCULAR HEMOGLOBIN 28.7 pg (27.0-31.0); MEAN CORPUSCULAR HGB CONC 31.3 g/dL (32.0-36.0); MEAN CORPUSCULAR VOLUME 91.7 fL (80.0-94.0); MEAN PLATELET VOLUME 10.8 fL (7.4-11.4); MONOCYTES # (AUTO) 0.7 10^3/uL (0.0-1.0); MONOCYTES % (AUTO) 13.3 %; NEUTROPHILS # (AUTO) 3.2 10^3/uL (1.5-6.6); PLT - PLATELET COUNT 138 10^3/uL (130-450); RED BLOOD COUNT 4.36 10^6/uL (4.70-6.10); RED CELL DISTRIBUTION WIDTH 18.8 % (12.0-15.0); WHITE BLOOD COUNT 5.2 x10^3/uL (4.8-10.8)
[2019-07-30 05:01] LABS: INR 4.2 (0.8-1.2); PT - PROTHROMBIN TIME 43.7 secs (9.9-12.6)
[2019-07-30 05:10] LABS: CALCIUM 8.8 mg/dL (8.5-10.3); CREATININE 2.5 mg/dL (0.6-1.2); MAGNESIUM 2.4 mg/dL (1.7-2.8); PHOSPHORUS 5.2 mg/dL (2.5-4.6)
[2019-07-30] MEDS: SODIUM CHLORIDE FLUSH 0.9% 10 ML SYRINGE IVP SCH ×3 (05:11→16:13)
[2019-07-30] MEDS: guaiFENesin 100 MG/5 ML UDC PO PRN ×2 (05:11→16:09)
[2019-07-30] MEDS ORDERED: FUROSEMIDE 40 MG/4 ML VIAL IVP SCH (06:00)
--- NOTE | 2019-07-30 07:43 | PHARMACY PROGRESS NOTE ---
- Best Possible Medication History Admit Date and Time: 07/29/192128 Processed by: Pharmacy Medication History completed: Yes Patient Interview: Pt unable to participate Secondary Source(s): Pharmacy records, Insurance records As the person ultimately responsible for medication therapy, providers are able to order a medication from an existing home medication list in [facility] via the "Reconcile Routine" prior to Confirmation of that medication by system support developer. Such practice is discouraged except when the physician, in their clinical judgment, deems that a medical need exists for a medication without regard to previous use.
[2019-07-30] MEDS: polyethylene glycoL 3350 17 GM PACKET PO SCH (08:32)
[2019-07-30] MEDS: DIGOXIN 125 MCG TABLET PO SCH (08:38)
[2019-07-30] MEDS ORDERED: carvediloL 3.125 MG TABLET PO SCH (09:00)
[2019-07-30] MEDS ORDERED: LOSARTAN 50 MG TABLET PO SCH (09:00)
[2019-07-30] MEDS ORDERED: SODIUM CHLORIDE 0.9% 500 ML IV ONE (09:24)
--- NOTE | 2019-07-30 09:28 | PROVIDER PROGRESS NOTE ---
Subjective - Prog Note Date Prog Note Date: 07/30/19 Prog Note Time: 09:24 - Subjective Pt reports feeling: No change Subjective: Baltazar complains of his ongoing cough, activity intolerance, and orthopnea. He denies chest pain or pressure, a new rash, sputum production, headaches, constipation or diarrhea. He mildly complains of his latest CHF medication routine, but also how he has been sick and tired of peeing all the time. His legs do not hurt, but his wounds appear to be chronic and are weeping. Current Medications - Current Medications Current Medications: Active Medications: Acetaminophen (Tylenol) 650 mg PO Q4HR PRN Atorvastatin Calcium (Lipitor) 10 mg PO QPM [facility] Bacitracin (Bacitracin Zinc Oint) 28.4 gm TOP DAILY [facility] Benzonatate (Tessalon) 100 mg PO TID PRN Carvedilol (Coreg) 3.125 mg PO BID [facility] Digoxin (Lanoxin) 125 mcg PO DAILY [facility] Guaifenesin (Robitussin Liquid) 100 mg PO Q6HR PRN Guaifenesin (Mucinex) 600 mg PO BID [facility] Levalbuterol HCl (Xopenex) 1.25 mg INH QID [facility] Midodrine 5 mg PO TIDWM [facility] Ondansetron HCl (Zofran Inj) 4 mg IVP Q6HR PRN Polyethylene Glycol (Miralax) 17 gm PO DAILY [facility] Spironolactone (Aldactone) 25 mg PO DAILY [facility] Tamsulosin HCl Flomax 0.4 mg PO DAILY [facility] HOME meds: Warfarin [Coumadin] 5 mg PO DAILY 04/16/13 carvediloL [Coreg] 6.25 mg PO BID 04/16/13 Cyclobenzaprine [Flexeril] 10 mg TID PRN 07/29/19 Digoxin [Lanoxin] 125 mcg PO DAILY 07/29/19 Losartan Potassium [Cozaar] 50 mg DAILY 07/29/19 Simvastatin 40 mg DAILY 07/29/19 Torsemide 80 mg DAILY 07/29/19 traMADol [Ultram] 50 mg QID PRN 07/29/19 Potassium Chloride 20 meq PO DAILY 07/30/19 Objective - Vital Signs/Intake & Output Reviewed Vital Signs: Yes Vital Signs: Vital Signs x48h Temp Pulse Pulse Resp BP Pulse Ox 07/30/19 08:43 36.3 C L 79 20 89/59 L 98 07/30/19 04:37 36.3 C L 70 20 92/61 98 07/30/19 03:52 36.6 C 69 20 98 Intake & Output: Intake & Output 07/27/19 07/28/19 07/29/19 07/30/19 23:59 23:59 23:59 23:59 Intake Total 15 400 Output Total 30 Balance -15 400 - Objective General Appearance: positive: No acute distress, Alert Eyes Bilateral: positive: No lid inflammation ENT: positive: Pharyngeal erythema, Dry mucous membranes Neck: positive: Thyroid nml, No JVD, Trachea midline, Stiff neck Respiratory: positive: Chest non-tender, No respiratory distress, Other (diminished, no wheezing or crackles, shallow breathing) Cardiovascular: positive: Irregularly irregular, Systolic murmur, Diastolic murmur, Decreased pulse(s) Peripheral Pulses: 0 Dorsalis pedis (R), 0 Dorsalis pedis (L), 1+ Radial (R), 1+ Radial (L) Abdomen: positive: Non-tender, Nml bowel sounds, Other (rounded, firm) Back: positive: Nml inspection Skin: positive: No rash, Warm, Dry, Other (bronze toned skin, no jaundice BLE open venous statis wounds, wheeping) Extremities: positive: Non-tender, Pedal edema, Other. negative: Nml appearance (appears to have long standing vascular issues with BLEs, open wounds which are wheeping) Neurologic/Psychiatric: positive: Oriented x3, CN's nml (2-12), Sensory loss, Depressed mood/affect (flat affect, friendly, chatty, underlying "grumpy bertrand" attidude, but recovers quickly). negative: Sensation nml Reflexes: Bicep (R): 3+, Bicep (L): 3+ - Lab Results Fish Bones: 07/30/19 04:47 07/30/19 12:06 Other Labs: Lab Results x24hrs 07/30/19 07/30/19 07/30/19 Range/Units 04:47 04:47 04:47 WBC (4.8-10.8) x10^3/uL RBC (4.70-6.10) 10^6/uL Hgb (14.0-18.0) g/dL Hct (42.0-52.0) % MCV (80.0-94.0) fL MCH (27.0-31.0) pg MCHC (32.0-36.0) g/dL RDW (12.0-15.0) % Plt Count (130-450) 10^3/uL MPV (7.4-11.4) fL Neut # (Auto) (1.5-6.6) 10^3/uL Lymph # (Auto) (1.5-3.5) 10^3/uL [place] # (Auto) (0.0-1.0) 10^3/uL Eos # (Auto) (0.0-0.7) 10^3/uL Baso # (Auto) (0.0-0.1) 10^3/uL Absolute Nucleated RBC x10^3/uL Nucleated RBC % /100WBC PT 43.7 H (9.9-12.6) secs INR 4.2 H (0.8-1.2) APTT (24.9-33.3) secs Sodium 134 L (135-145) mmol/L Potassium 4.1 (3.5-5.0) mmol/L Chloride 93 L (101-111) mmol/L Carbon Dioxide 27 (21-32) mmol/L Anion Gap 14.0 H (6-13) BUN 99 H* (6-20) mg/dL Creatinine 2.5 H (0.6-1.2) mg/dL Estimated GFR (MDRD) 25 L (>89) Glucose 104 H (70-100) mg/dL Lactic Acid (0.5-2.2) mmol/L Calcium 8.8 (8.5-10.3) mg/dL Phosphorus 5.2 H (2.5-4.6) mg/dL Magnesium 2.4 (1.7-2.8) mg/dL Total Bilirubin (0.2-1.0) mg/dL Direct Bilirubin (0.1-0.5) mg/dL AST (10-42) IU/L ALT (10-60) IU/L Alkaline Phosphatase (42-121) IU/L Total Creatine Kinase (22-269) IU/L Troponin I High Sens (2.3-19.7) ng/L B-Natriuretic Peptide 1159 H (5-100) pg/mL Total Protein (6.7-8.2) g/dL Albumin (3.2-5.5) g/dL Globulin (2.1-4.2) g/dL Albumin/Globulin Ratio (1.0-2.2) Lipase (22-51) U/L Urine Color Urine Clarity (CLEAR) Urine pH (5.0-7.5) PH Ur Specific [place] (1.002-1.030) Urine Protein (NEGATIVE) mg/dL Urine Glucose (UA) (NEGATIVE) mg/dL Urine Ketones (NEGATIVE) mg/dL Urine Occult Blood (NEGATIVE) Urine Nitrite (NEGATIVE) Urine Bilirubin (NEGATIVE) Urine Urobilinogen (NORMAL) E.U./dL Ur Leukocyte Esterase (NEGATIVE) Ur Microscopic Review Urine Culture Comments Last Dose Date Last Dose Time Digoxin ng/mL Influenza A (Rapid) (Negative) Influenza B (Rapid) (Negative) 07/30/19 07/29/19 07/29/19 Range/Units 04:47 22:44 22:44 WBC 5.2 (4.8-10.8) x10^3/uL RBC 4.36 L (4.70-6.10) 10^6/uL Hgb 12.5 L (14.0-18.0) g/dL Hct 40.0 L (42.0-52.0) % MCV 91.7 (80.0-94.0) fL MCH 28.7 (27.0-31.0) pg MCHC 31.3 L (32.0-36.0) g/dL RDW 18.8 H (12.0-15.0) % Plt Count 138 (130-450) 10^3/uL MPV 10.8 (7.4-11.4) fL Neut # (Auto) 3.2 (1.5-6.6) 10^3/uL Lymph # (Auto) 1.1 L (1.5-3.5) 10^3/uL [place] # (Auto) 0.7 (0.0-1.0) 10^3/uL Eos # (Auto) 0.2 (0.0-0.7) 10^3/uL Baso # (Auto) 0.0 (0.0-0.1) 10^3/uL Absolute Nucleated RBC 0.00 x10^3/uL Nucleated RBC % 0.0 /100WBC PT (9.9-12.6) secs INR (0.8-1.2) APTT (24.9-33.3) secs Sodium (135-145) mmol/L Potassium (3.5-5.0) mmol/L Chloride (101-111) mmol/L Carbon Dioxide (21-32) mmol/L Anion Gap (6-13) BUN (6-20) mg/dL Creatinine (0.6-1.2) mg/dL Estimated GFR (MDRD) (>89) Glucose (70-100) mg/dL Lactic Acid 1.7 (0.5-2.2) mmol/L Calcium (8.5-10.3) mg/dL Phosphorus (2.5-4.6) mg/dL Magnesium (1.7-2.8) mg/dL Total Bilirubin (0.2-1.0) mg/dL Direct Bilirubin (0.1-0.5) mg/dL AST (10-42) IU/L ALT (10-60) IU/L Alkaline Phosphatase (42-121) IU/L Total Creatine Kinase (22-269) IU/L Troponin I High Sens 100.7 H* (2.3-19.7) ng/L B-Natriuretic Peptide (5-100) pg/mL Total Protein (6.7-8.2) g/dL Albumin (3.2-5.5) g/dL Globulin (2.1-4.2) g/dL Albumin/Globulin Ratio (1.0-2.2) Lipase (22-51) U/L Urine Color Urine Clarity (CLEAR) Urine pH (5.0-7.5) PH Ur Specific [place] (1.002-1.030) Urine Protein (NEGATIVE) mg/dL Urine Glucose (UA) (NEGATIVE) mg/dL Urine Ketones (NEGATIVE) mg/dL Urine Occult Blood (NEGATIVE) Urine Nitrite (NEGATIVE) Urine Bilirubin (NEGATIVE) Urine Urobilinogen (NORMAL) E.U./dL Ur Leukocyte Esterase (NEGATIVE) Ur Microscopic Review Urine Culture Comments Last Dose Date Last Dose Time Digoxin ng/mL Influenza A (Rapid) (Negative) Influenza B (Rapid) (Negative) 07/29/19 07/29/19 07/29/19 Range/Units 20:45 20:30 20:18 WBC (4.8-10.8) x10^3/uL RBC (4.70-6.10) 10^6/uL Hgb (14.0-18.0) g/dL Hct (42.0-52.0) % MCV (80.0-94.0) fL MCH (27.0-31.0) pg MCHC (32.0-36.0) g/dL RDW (12.0-15.0) % Plt Count (130-450) 10^3/uL MPV (7.4-11.4) fL Neut # (Auto) (1.5-6.6) 10^3/uL Lymph # (Auto) (1.5-3.5) 10^3/uL [place] # (Auto) (0.0-1.0) 10^3/uL Eos # (Auto) (0.0-0.7) 10^3/uL Baso # (Auto) (0.0-0.1) 10^3/uL Absolute Nucleated RBC x10^3/uL Nucleated RBC % /100WBC PT (9.9-12.6) secs INR (0.8-1.2) APTT (24.9-33.3) secs Sodium (135-145) mmol/L Potassium (3.5-5.0) mmol/L Chloride (101-111) mmol/L Carbon Dioxide (21-32) mmol/L Anion Gap (6-13) BUN (6-20) mg/dL Creatinine (0.6-1.2) mg/dL Estimated GFR (MDRD) (>89) Glucose (70-100) mg/dL Lactic Acid (0.5-2.2) mmol/L Calcium (8.5-10.3) mg/dL Phosphorus (2.5-4.6) mg/dL Magnesium (1.7-2.8) mg/dL Total Bilirubin (0.2-1.0) mg/dL Direct Bilirubin (0.1-0.5) mg/dL AST (10-42) IU/L ALT (10-60) IU/L Alkaline Phosphatase (42-121) IU/L Total Creatine Kinase (22-269) IU/L Troponin I High Sens 109.5 H* (2.3-19.7) ng/L B-Natriuretic Peptide (5-100) pg/mL Total Protein (6.7-8.2) g/dL Albumin (3.2-5.5) g/dL Globulin (2.1-4.2) g/dL Albumin/Globulin Ratio (1.0-2.2) Lipase (22-51) U/L Urine Color YELLOW Urine Clarity CLEAR (CLEAR) Urine pH 5.0 (5.0-7.5) PH Ur Specific [place] 1.020 (1.002-1.030) Urine Protein TRACE (NEGATIVE) mg/dL Urine Glucose (UA) NEGATIVE (NEGATIVE) mg/dL Urine Ketones NEGATIVE (NEGATIVE) mg/dL Urine Occult Blood NEGATIVE (NEGATIVE) Urine Nitrite NEGATIVE (NEGATIVE) Urine Bilirubin NEGATIVE (NEGATIVE) Urine Urobilinogen 0.2 (NORMAL) (NORMAL) E.U./dL Ur Leukocyte Esterase NEGATIVE (NEGATIVE) Ur Microscopic Review NOT INDICATED Urine Culture Comments NOT INDICATED Last Dose Date Last Dose Time Digoxin ng/mL Influenza A (Rapid) Negative (Negative) Influenza B (Rapid) Negative (Negative) 07/29/19 07/29/19 07/29/19 Range/Units 20:18 20:18 20:18 WBC (4.8-10.8) x10^3/uL RBC (4.70-6.10) 10^6/uL Hgb (14.0-18.0) g/dL Hct (42.0-52.0) % MCV (80.0-94.0) fL MCH (27.0-31.0) pg MCHC (32.0-36.0) g/dL RDW (12.0-15.0) % Plt Count (130-450) 10^3/uL MPV (7.4-11.4) fL Neut # (Auto) (1.5-6.6) 10^3/uL Lymph # (Auto) (1.5-3.5) 10^3/uL [place] # (Auto) (0.0-1.0) 10^3/uL Eos # (Auto) (0.0-0.7) 10^3/uL Baso # (Auto) (0.0-0.1) 10^3/uL Absolute Nucleated RBC x10^3/uL Nucleated RBC % /100WBC PT (9.9-12.6) secs INR (0.8-1.2) APTT (24.9-33.3) secs Sodium (135-145) mmol/L Potassium (3.5-5.0) mmol/L Chloride (101-111) mmol/L Carbon Dioxide (21-32) mmol/L Anion Gap (6-13) BUN (6-20) mg/dL Creatinine (0.6-1.2) mg/dL Estimated GFR (MDRD) (>89) Glucose (70-100) mg/dL Lactic Acid 2.4 H (0.5-2.2) mmol/L Calcium (8.5-10.3) mg/dL Phosphorus (2.5-4.6) mg/dL Magnesium (1.7-2.8) mg/dL Total Bilirubin (0.2-1.0) mg/dL Direct Bilirubin 0.7 H (0.1-0.5) mg/dL AST (10-42) IU/L ALT (10-60) IU/L Alkaline Phosphatase (42-121) IU/L Total Creatine Kinase (22-269) IU/L Troponin I High Sens (2.3-19.7) ng/L B-Natriuretic Peptide 1197 H (5-100) pg/mL Total Protein (6.7-8.2) g/dL Albumin (3.2-5.5) g/dL Globulin (2.1-4.2) g/dL Albumin/Globulin Ratio (1.0-2.2) Lipase (22-51) U/L Urine Color Urine Clarity (CLEAR) Urine pH (5.0-7.5) PH Ur Specific [place] (1.002-1.030) Urine Protein (NEGATIVE) mg/dL Urine Glucose (UA) (NEGATIVE) mg/dL Urine Ketones (NEGATIVE) mg/dL Urine Occult Blood (NEGATIVE) Urine Nitrite (NEGATIVE) Urine Bilirubin (NEGATIVE) Urine Urobilinogen (NORMAL) E.U./dL Ur Leukocyte Esterase (NEGATIVE) Ur Microscopic Review Urine Culture Comments Last Dose Date UNKNOWN Last Dose Time UNKNOWN Digoxin 2.2 ng/mL Influenza A (Rapid) (Negative) Influenza B (Rapid) (Negative) 07/29/19 07/29/1907/28/20 Range/Units 20:18 20:18 20:18 WBC 4.9 (4.8-10.8) x10^3/uL RBC 4.30 L (4.70-6.10) 10^6/uL Hgb 12.5 L (14.0-18.0) g/dL Hct 40.0 L (42.0-52.0) % MCV 93.0 (80.0-94.0) fL MCH 29.1 (27.0-31.0) pg MCHC 31.3 L (32.0-36.0) g/dL RDW 18.4 H (12.0-15.0) % Plt Count 142 (130-450) 10^3/uL MPV 11.9 H (7.4-11.4) fL Neut # (Auto) 3.0 (1.5-6.6) 10^3/uL Lymph # (Auto) 1.0 L (1.5-3.5) 10^3/uL [place] # (Auto) 0.8 (0.0-1.0) 10^3/uL Eos # (Auto) 0.1 (0.0-0.7) 10^3/uL Baso # (Auto) 0.0 (0.0-0.1) 10^3/uL Absolute Nucleated RBC 0.00 x10^3/uL Nucleated RBC % 0.0 /100WBC PT 44.0 H (9.9-12.6) secs INR 4.2 H (0.8-1.2) APTT 50.0 H (24.9-33.3) secs Sodium 134 L (135-145) mmol/L Potassium 4.0 (3.5-5.0) mmol/L Chloride 94 L (101-111) mmol/L Carbon Dioxide 27 (21-32) mmol/L Anion Gap 13.0 (6-13) BUN 73 H (6-20) mg/dL Creatinine 2.7 H (0.6-1.2) mg/dL Estimated GFR (MDRD) 23 L (>89) Glucose 108 H (70-100) mg/dL Lactic Acid (0.5-2.2) mmol/L Calcium 8.8 (8.5-10.3) mg/dL Phosphorus (2.5-4.6) mg/dL Magnesium 2.4 (1.7-2.8) mg/dL Total Bilirubin 1.5 H (0.2-1.0) mg/dL Direct Bilirubin (0.1-0.5) mg/dL AST 31 (10-42) IU/L ALT 16 (10-60) IU/L Alkaline Phosphatase 121 (42-121) IU/L Total Creatine Kinase 162 (22-269) IU/L Troponin I High Sens (2.3-19.7) ng/L B-Natriuretic Peptide (5-100) pg/mL Total Protein 7.1 (6.7-8.2) g/dL Albumin 3.6 (3.2-5.5) g/dL Globulin 3.5 (2.1-4.2) g/dL Albumin/Globulin Ratio 1.0 (1.0-2.2) Lipase 34 (22-51) U/L Urine Color Urine Clarity (CLEAR) Urine pH (5.0-7.5) PH Ur Specific [place] (1.002-1.030) Urine Protein (NEGATIVE) mg/dL Urine Glucose (UA) (NEGATIVE) mg/dL Urine Ketones (NEGATIVE) mg/dL Urine Occult Blood (NEGATIVE) Urine Nitrite (NEGATIVE) Urine Bilirubin (NEGATIVE) Urine Urobilinogen (NORMAL) E.U./dL Ur Leukocyte Esterase (NEGATIVE) Ur Microscopic Review Urine Culture Comments Last Dose Date Last Dose Time Digoxin ng/mL Influenza A (Rapid) (Negative) Influenza B (Rapid) (Negative) - Diagnostic Imaging Diagnostic Imaging Results: positive: Final report reviewed Diagnostic Imaging Comments: EXAM: CHEST RADIOGRAPHY 07/29/2019 08:28 PM IMPRESSION: 1. Probable atelectasis and scarring in the right lung, similar compared to previous radiograph. No definite new focal opacities. 2. Cardiomegaly and cardiac device. ABX Reporting Has patient been on IV antibiotics over the past 48 hours?: No Assessment/Plan - Problem List (1) Acute on chronic HFrEF (heart failure with reduced ejection fraction) Impression: -Conflicting stories after a chart review (Dr. Lara office visit from 07/20/2019) -Sounds like the patient had stopped his Coreg, and torsemide, which would explain his decompensated situation he is currently in -BNP is elevated 1197, only improved to 1159 upon recheck -According to our records, the patient has been as high as 1803 in the past -A chest x-ray showed any obvious pulmonary edema or vascular congestion -BLE pitting edema is reduced since admission, but patient has an enlarged abdominal girth -Lasix IV was given 40 mg while in the ED, then 60mg once on the nursing floor -Blood pressure was low, with patient having dizziness, so a 1 time dose of NS of 500 mL was given -Started on Spironolactone tonight, but patient remembers he has had problems with his potassium in the past, so this may not be continued for home use -Carvedilol dose was adjusted to 3.125 BID per Cardiology office notes -Holding Losartan for light B/Ps -Repeat echocardiogram since last was in May -Considering reaching out to Dr. Mcfadden in the AM if he is director of pediatric rehabilitation -Continuous supplemental oxygen for now due to poor cardiac output and continuous cough -Low-sodium diet and fluid restriction of 2 L -Monitor daily weights, strict I/Os, and based on clinical exam Hypotension -B/Ps light around 88/59 & 99/61 -Started on medium dose midodrine TID with meals to allow for diuretics -Continue vital signs Q4H or for symptoms of low B/P such as change in mental status or dizziness Hypoxia -Patient has signs of poor perfusion, with having purple knuckles, purple nail beds and an ongoing cough -Started on Xopenex nebs, incentive spirometry, and Mucinex -Improvement after applying oxygen -Upon admission, the patient was hypoxic in the 70s and 80s on room air which improved to the mid 90s on 2 L of oxygen via nasal cannula -He was weaned off today, but after meeting him, I have prescribed continuous oxygen -Known Cor Pulmonale with COPD, so would likely qualify for home oxygen if needed -Continue respiratory cares, Xopenex nebs, Incentive spirometry, and a walking oxygen test prior to discharge Elevated troponin -Troponin was elevated at 109.5, and remained flat at 100.7 on repeat -No chest pain, but persistent cough -Provided continuous oxygen, Xopenex nebulizers, and Mucinex scheduled -Likely demand ischemia due to decompensated HF Acute kidney injury superimposed on CKD -Baseline serum creatinine ~1.6-1.9 -Creatinine was elevated at 2.7 upon admission, now 2.5 -BUN up to 99 from 73 on admit -Unknown urine output, now asked nursing staff & patient to make sure to measure urine output -After exam today, and hypotension, patient was given a 1 time dose of NS 500 mL -Starting Spironolactone tonight, resuming IV Lasix in the AM -Routine labs Ischemic cardiomyopathy -EF was 15-30% for many years, most recently was 20% -Status post CABG with valve replacement in 2008 -Home meds include: digoxin, coreg, metolazone, torsemide, potassium and losartan -Continues on coreg & digoxin, holding everything else -Await new echo in the AM, continuous telemetry Elevated INR -Patient is managed by the [facility], but does not think this arrangement is very convenient -INR is elevated at 4.2 x2, Coumadin is on hold -Pharmacy consult for Warfarin management -Daily INR, keep INR between 2.5-3.5 Chronic atrial fibrillation -Atrial fibrillation is permanent, continues on Coumadin -V-paced with Zomato Bi-V-ICD placed on April 08, 2016 -Continues on daily digoxin, coreg with BID dosing -Monitor on telemetry, continue meds History of aortic valve replacement with bioprosthetic valve -Status post mechanical aortic valve replacement in 2008 at [facility] in [place] -[facility] mechanical aortic valve -Last echocardiogram showed; normally functioning bio-prosthetic valve in the aortic position with a peak velocity of <3 m/second -Continues on Coumadin per pharmacy, on hold for tonight (goal 2.5-3.5) Chronic venous insufficiency -Evidence of long standing perfusion disorders -Also with BPH, and history of CABG (wide-spread vessel disease) -Longstanding tobacco dependence, stopped in 2002 -Advanced pigment changes on both the medial and lateral ankles, extending into the dorsum of the foot -Moderate to large BLEs wounds, non-healing -See chart for photos BPH -Poor quality of life surrounding dysuria with urinary frequency, urgency, excessive nocturia (5-8 times per night) and incomplete bladder emptying -Whole body vessel disease due to hereditary reasons and from tobacco dependence for greater than 30 years -Starting on flomax daily to improve symptoms -May benefit from urology follow up -Bladder scans per shift x24 hours, post void evaluation please COPD -Patient notes that he began smoking cigarettes in 1963, and stopped in 2002 (~39 years) -Now with Cor Pulmonale, patient denies ARNOLD -No spironolactone on home med list, may be due to renal disease
[2019-07-30] MEDS: carvediloL 3.125 MG TABLET PO SCH ×2 (10:08→20:56)
[2019-07-30] MEDS: guaiFENesin 600 MG TABLET PO SCH ×2 (10:08→20:55)
[2019-07-30] MEDS: SODIUM CHLORIDE FLUSH 0.9% 10 ML SYRINGE IVP PRN ×2 (10:09→17:43)
[2019-07-30] MEDS: LEVALBUTEROL 1.25 MG/3 ML NEB INH SCH ×3 (10:10→18:02)
[2019-07-30 12:28] LABS: CALCIUM 8.6 mg/dL (8.5-10.3); CREATININE 2.5 mg/dL (0.6-1.2)
--- NOTE | 2019-07-30 13:33 | PHARMACY PROGRESS NOTE ---
- Monitoring Indication for anticoagulation: Atrial Fibrillation, Mechanical heart valve Goal INR: 2.5-3.5 Previous home regime: 5 MG PO DAILY Risk factors for bleed: Hypertension, Heart disease or [place], Renal insufficiency, Age >65 - Recommendations Dosing: Anticoagulation Monitoring 07/30/19 07/30/19 07/29/19 04:47 04:47 20:18 Hgb 12.5 L Hct 40.0 L PT 43.7 H 44.0 H INR 4.2 H 4.2 H 07/29/19 20:18 Hgb 12.5 L Hct 40.0 L PT INR HOLD DOSE TODAY (07/29) S&S of bleeding: Pharmacy recommendation: Hold dose (INR > 3.5, HOLD DOSE TODAY AND REEVALUATE 07/30)
[2019-07-30] MEDS ORDERED: BACITRACIN ZINC OINT 1 PACKET TOP SCH (14:43)
[2019-07-30] MEDS: TAMSULOSIN 0.4 MG CAPSULE PO SCH (14:56)
[2019-07-30] MEDS: SPIRONOLACTONE 25 MG TABLET PO SCH (14:56)
[2019-07-30] MEDS: BACITRACIN ZINC OINT 28.4 GM TUBE TOP SCH (14:57)
[2019-07-30] MEDS: MIDODRINE 2.5 MG TABLET PO SCH (17:16)
[2019-07-30 18:39] LABS: MUDS CUTOFF CONCENTRATIONS CUTOFF CONC BELOW:
[2019-07-30 18:52] LABS: AMPHETAMINE SCREEN,URINE NEGATIVE (NEGATIVE); BENZODIAZEPINES SCREEN, URINE NEGATIVE (NEGATIVE); COCAINE SCREEN URINE NEGATIVE (NEGATIVE); METHADONE SCREEN, URINE NEGATIVE (NEGATIVE); METHAMPHETAMINES SCREEN, URINE NEGATIVE (NEGATIVE); OPIATE SCREEN, URINE POSITIVE (NEGATIVE); OXYCODONE SCREEN, URINE NEGATIVE (NEGATIVE); PROPOXYPHENE SCREEN, URINE NEGATIVE (NEGATIVE); TRICYCLIC ANTIDEPRESSANT,URINE NEGATIVE (NEGATIVE)
[2019-07-30] MEDS: ATORVASTATIN 10 MG TABLET PO SCH (20:55)
[2019-07-31] MEDS: SODIUM CHLORIDE FLUSH 0.9% 10 ML SYRINGE IVP SCH ×4 (00:03→21:50)
[2019-07-31 06:07] LABS: BASOPHILS % (AUTO) 0.2 %; HGB - HEMOGLOBIN 13.6 g/dL (14.0-18.0)
[2019-07-31 06:10] LABS: PT - PROTHROMBIN TIME 47.6 secs (9.9-12.6)
[2019-07-31 06:15] LABS: EOSINOPHILS # (AUTO) 0.2 10^3/uL (0.0-0.7); EOSINOPHILS % (AUTO) 3.5 %; INR 4.6 (0.8-1.2); LYMPHOCYTES % (AUTO) 22.8 %; MEAN CORPUSCULAR HGB CONC 31.7 g/dL (32.0-36.0); MEAN CORPUSCULAR VOLUME 91.5 fL (80.0-94.0); MEAN PLATELET VOLUME 12.1 fL (7.4-11.4); MONOCYTES # (AUTO) 0.4 10^3/uL (0.0-1.0); MONOCYTES % (AUTO) 9.1 %; NEUTROPHILS # (AUTO) 2.9 10^3/uL (1.5-6.6); NEUTROPHILS % (AUTO) 63.5 %; PLT - PLATELET COUNT 122 10^3/uL (130-450); RED BLOOD COUNT 4.69 10^6/uL (4.70-6.10); RED CELL DISTRIBUTION WIDTH 19.6 % (12.0-15.0); WHITE BLOOD COUNT 4.5 x10^3/uL (4.8-10.8)
[2019-07-31 06:20] LABS: CALCIUM 8.7 mg/dL (8.5-10.3); CREATININE 2.3 mg/dL (0.6-1.2); MAGNESIUM 2.5 mg/dL (1.7-2.8); PHOSPHORUS 4.9 mg/dL (2.5-4.6)
--- NOTE | 2019-07-31 08:15 | PHARMACY PROGRESS NOTE ---
- Monitoring Indication for anticoagulation: Atrial Fibrillation, Mechanical heart valve (Bioprosthetic) Goal INR: 2.5-3.5 (per provider) Previous home regime: 5 mg po daily Potentially interacting medications: Spironolactone (per micromedex) Risk factors for bleed: Hypertension, Heart disease or [place], Renal insufficiency, Age >65 - Recommendations Dosing: Anticoagulation Monitoring 07/31/19 07/31/19 07/30/19 05:54 05:54 04:47 Hgb 13.6 L Hct 42.9 PT 47.6 H 43.7 H INR 4.6 H* 4.2 H 07/30/19 07/29/19 07/29/19 04:47 20:18 20:18 Hgb 12.5 L 12.5 L Hct 40.0 L 40.0 L PT 44.0 H INR 4.2 H Last Dose Given: S&S of bleeding: Pharmacy recommendation: Hold dose (INR > 3.5 (4.6), HOLD DOSE TODAY AND REEVALUATE 07/31)
[2019-07-31] MEDS: guaiFENesin 600 MG TABLET PO SCH ×2 (08:26→21:49)
[2019-07-31] MEDS: MIDODRINE 2.5 MG TABLET PO SCH (08:27)
[2019-07-31] MEDS: TAMSULOSIN 0.4 MG CAPSULE PO SCH (08:27)
[2019-07-31] MEDS: DIGOXIN 125 MCG TABLET PO SCH (08:27)
[2019-07-31] MEDS: carvediloL 3.125 MG TABLET PO SCH (09:30)
[2019-07-31] MEDS: polyethylene glycoL 3350 17 GM PACKET PO SCH (09:30)
[2019-07-31] MEDS: SPIRONOLACTONE 25 MG TABLET PO SCH (09:31)
[2019-07-31] MEDS ORDERED: FUROSEMIDE 40 MG/4 ML VIAL IVP SCH (10:00)
[2019-07-31] MEDS: BACITRACIN ZINC OINT 28.4 GM TUBE TOP SCH (11:16)
--- NOTE | 2019-07-31 11:26 | PROVIDER PROGRESS NOTE ---
Subjective - Prog Note Date Prog Note Date: 07/31/19 Prog Note Time: 11:32 - Subjective Pt reports feeling: No change Subjective: Baltazar complains of poor appetite, dry cough, shortness of breath and weakness. He denies chest pain, nausea, vomiting, diarrhea, difficulty with urinating, a new productive cough, or a new rash. The patient also complained of more low back pain when attempting to get out of bed. He has agreed to a transfer to our ICU to continue his HF treatment and wishes to remain a FULL code. Current Medications - Current Medications Current Medications: Active Medications: Acetaminophen (Tylenol) 650 mg PO Q4HR PRN Atorvastatin Calcium (Lipitor) 10 mg PO QPM EITAN Bacitracin (Bacitracin Zinc Oint) 28.4 gm TOP DAILY EITAN Benzonatate (Tessalon) 100 mg PO TID PRN Carvedilol (Coreg) 3.125 mg PO BID EITAN Digoxin (Lanoxin) 125 mcg PO DAILY EITAN Guaifenesin (Robitussin Liquid) 100 mg PO Q6HR PRN Guaifenesin (Mucinex) 600 mg PO BID EITAN Levalbuterol HCl (Xopenex) 1.25 mg INH QID EITAN Ondansetron HCl (Zofran Inj) 4 mg IVP Q6HR PRN Polyethylene Glycol (Miralax) 17 gm PO DAILY EITAN Spironolactone (Aldactone) 25 mg PO DAILY EITAN Lasix 40mg IV daily Tamsulosin HCl Flomax 0.4 mg PO DAILY EITAN Dobutamine gtt at 2.5mcg\kg\min, requiring ICU level long term meds: Warfarin [Coumadin] 5 mg PO DAILY 04/16/13 carvediloL [Coreg] 6.25 mg PO BID 04/16/13 Cyclobenzaprine [Flexeril] 10 mg TID PRN 07/29/19 Digoxin [Lanoxin] 125 mcg PO DAILY 07/29/19 Losartan Potassium [Cozaar] 50 mg DAILY 07/29/19 Simvastatin 40 mg DAILY 07/29/19 Torsemide 80 mg DAILY 07/29/19 traMADol [Ultram] 50 mg QID PRN 07/29/19 Potassium Chloride 20 meq PO DAILY 07/30/19 Objective - Vital Signs/Intake & Output Reviewed Vital Signs: Yes Vital Signs: Vital Signs x48h Temp Pulse Resp BP BP Pulse Ox 07/31/19 10:14 77 93/53 L 07/31/19 08:02 36.3 C L 71 18 88/53 L 98 07/31/19 05:00 36.3 C L 73 18 108/35 L 100 Intake & Output: Intake & Output 07/28/19 07/29/19 07/30/19 07/31/19 23:59 23:59 23:59 23:59 Intake Total 15 1240 120 Output Total 30 100 300 Balance -15 1140 -180 - Objective General Appearance: positive: Alert, Moderate distress (Appears uncomfortable in any position), Anxious Eyes Bilateral: positive: No lid inflammation ENT: positive: Pharyngeal erythema, Dry mucous membranes, Other (no teeth, 2 implants for new dentures to adhere to on lower jaw) Neck: positive: Trachea midline, Stiff neck Respiratory: positive: Chest non-tender, Other (scattered crackles, in low bases, diminshed with shallow breathing) Cardiovascular: positive: Irregularly irregular, JVD present (trace), Systolic murmur, Decreased pulse(s) Peripheral Pulses: 1+ Radial (R), 1+ Radial (L) Abdomen: positive: Non-tender, Nml bowel sounds, Other (rounded, soft) Back: positive: Nml inspection Skin: positive: No rash, Warm, Dry, Cyanosis (cyanotic knuckles, nail beds, and BLEs), Other (bronze toned skin, chronic BLEs, permanent discoloration to skin below knees) Extremities: positive: Non-tender, Pedal edema (long standing BLE edema with poor capillary refill (sluggish)), Joint swelling, Other (decreased sensation to BLEs including toes) Neurologic/Psychiatric: positive: Oriented x3, CN's nml (2-12), Weakness, Sensory loss, Depressed mood/affect (flat, very talkative) Reflexes: Bicep (R): 3+, Bicep (L): 3+ - Lab Results Fish Bones: 07/31/19 05:54 07/31/19 05:54 Other Labs: Lab Results x24hrs 07/31/19 07/31/19 07/31/19 Range/Units 05:54 05:54 05:54 WBC (4.8-10.8) x10^3/uL RBC (4.70-6.10) 10^6/uL Hgb (14.0-18.0) g/dL Hct (42.0-52.0) % MCV (80.0-94.0) fL MCH (27.0-31.0) pg MCHC (32.0-36.0) g/dL RDW (12.0-15.0) % Plt Count (130-450) 10^3/uL MPV (7.4-11.4) fL Neut # (Auto) (1.5-6.6) 10^3/uL Lymph # (Auto) (1.5-3.5) 10^3/uL Mitchell # (Auto) (0.0-1.0) 10^3/uL Eos # (Auto) (0.0-0.7) 10^3/uL Baso # (Auto) (0.0-0.1) 10^3/uL Absolute Nucleated RBC x10^3/uL Nucleated RBC % /100WBC PT 47.6 H (9.9-12.6) secs INR 4.6 H* (0.8-1.2) Sodium 136 (135-145) mmol/L Potassium 3.9 (3.5-5.0) mmol/L Chloride 96 L (101-111) mmol/L Carbon Dioxide 25 (21-32) mmol/L Anion Gap 15.0 H (6-13) BUN 98 H* (6-20) mg/dL Creatinine 2.3 H (0.6-1.2) mg/dL Estimated GFR (MDRD) 28 L (>89) Glucose 90 (70-100) mg/dL Calcium 8.7 (8.5-10.3) mg/dL Phosphorus 4.9 H (2.5-4.6) mg/dL Magnesium 2.5 (1.7-2.8) mg/dL B-Natriuretic Peptide 1137 H (5-100) pg/mL Urine Opiates Screen (NEGATIVE) Ur Oxycodone Screen (NEGATIVE) Urine Methadone Screen (NEGATIVE) Ur Propoxyphene Screen (NEGATIVE) Ur Barbiturates Screen (NEGATIVE) Ur Tricyclics Screen (NEGATIVE) Ur Phencyclidine Scrn (NEGATIVE) Ur Amphetamine Screen (NEGATIVE) U Methamphetamines Scrn (NEGATIVE) U Benzodiazepines Scrn (NEGATIVE) Urine Cocaine Screen (NEGATIVE) U Cannabinoids Screen (NEGATIVE) 07/31/19 07/30/19 07/30/19 Range/Units 05:54 18:30 12:06 WBC 4.5 L (4.8-10.8) x10^3/uL RBC 4.69 L (4.70-6.10) 10^6/uL Hgb 13.6 L (14.0-18.0) g/dL Hct 42.9 (42.0-52.0) % MCV 91.5 (80.0-94.0) fL MCH 29.0 (27.0-31.0) pg MCHC 31.7 L (32.0-36.0) g/dL RDW 19.6 H (12.0-15.0) % Plt Count 122 L (130-450) 10^3/uL MPV 12.1 H (7.4-11.4) fL Neut # (Auto) 2.9 (1.5-6.6) 10^3/uL Lymph # (Auto) 1.0 L (1.5-3.5) 10^3/uL Mitchell # (Auto) 0.4 (0.0-1.0) 10^3/uL Eos # (Auto) 0.2 (0.0-0.7) 10^3/uL Baso # (Auto) 0.0 (0.0-0.1) 10^3/uL Absolute Nucleated RBC 0.00 x10^3/uL Nucleated RBC % 0.0 /100WBC PT (9.9-12.6) secs INR (0.8-1.2) Sodium 135 (135-145) mmol/L Potassium 4.0 (3.5-5.0) mmol/L Chloride 94 L (101-111) mmol/L Carbon Dioxide 28 (21-32) mmol/L Anion Gap 13.0 (6-13) BUN 98 H* (6-20) mg/dL Creatinine 2.5 H (0.6-1.2) mg/dL Estimated GFR (MDRD) 25 L (>89) Glucose 114 H (70-100) mg/dL Calcium 8.6 (8.5-10.3) mg/dL Phosphorus (2.5-4.6) mg/dL Magnesium (1.7-2.8) mg/dL B-Natriuretic Peptide (5-100) pg/mL Urine Opiates Screen POSITIVE H (NEGATIVE) Ur Oxycodone Screen NEGATIVE (NEGATIVE) Urine Methadone Screen NEGATIVE (NEGATIVE) Ur Propoxyphene Screen NEGATIVE (NEGATIVE) Ur Barbiturates Screen NEGATIVE (NEGATIVE) Ur Tricyclics Screen NEGATIVE (NEGATIVE) Ur Phencyclidine Scrn NEGATIVE (NEGATIVE) Ur Amphetamine Screen NEGATIVE (NEGATIVE) U Methamphetamines Scrn NEGATIVE (NEGATIVE) U Benzodiazepines Scrn NEGATIVE (NEGATIVE) Urine Cocaine Screen NEGATIVE (NEGATIVE) U Cannabinoids Screen NEGATIVE (NEGATIVE) - Diagnostic Imaging Diagnostic Imaging Results: positive: Final report reviewed Diagnostic Imaging Comments: EXAM: CHEST RADIOGRAPHY 07/31/2019 12:29 PM IMPRESSION: Stable cardiomegaly post open heart surgery, without radiographic evidence for congestive heart failure or other acute cardiopulmonary abnormality. Echocardiogram preliminary report 07/31/2019: LV overall systolic function is severely impaired with an EF of 10-15%, severe global hypokinesis of LV contractility. LV septal wall is flattened in diastole and systole, consistent with RV volume and pressure overload. Severe RV enlargement, RV systolic function is severely impaired. Severe increase in the LA volume index, severe RA enlargement, normally functioning aortic prosthetic valve, shadowing most likely reverberation artifact is noted, cannot rule out vegetation. Severe mitral regurg, ERO is 0.60 cm2. RVSP at rest at least 44 mmHg, severe tricuspid regurg, mild (+1) pulmonic regurg, no pericardial effusion. Medium sized pleural effusion is noted. ABX Reporting Has patient been on IV antibiotics over the past 48 hours?: No Assessment/Plan - Problem List (1) Acute on chronic HFrEF (heart failure with reduced ejection fraction) Impression: -The patient had recent dental work done, which made his diet change to more canned (salty) foods per Dr. Mcfadden -The patient had stopped his Coreg, which was later resumed at 1/2 his usual dose [address] Dr[address] Mcfadden on 07/20/2019 during an office visit -He now has severe decomensated HF with a preliminary EF ~10% during a report via certified nuclear medicine technologist as the echo was underway -BNP is elevated 1137, nearly unchanged since admission -According to our records, the patient has been as high as 1803 in the past -A chest x-ray showed any obvious pulmonary edema or vascular congestion -Repeat chest x-ray today shows no evidence of CHF or other acute cardiopulmonary abnormalities -BLE pitting edema since admission, but patient has an enlarged abdominal girth, firm -Using accessory muscles to breathe -Ok to add spironolactone if creatinine is less than 2.[address] Mcfadden -Carvedilol dose was adjusted to 3.125 BID per Cardiology office notes, held this morning for hypotension -Repeat echocardiogram now predicts EF 10-15% -Spoke with Dr. Mcfadden today who recommends dobutamine to be transfused for possibly up to 3 days (continuous infusion) -Continuous supplemental oxygen for now due to poor cardiac output and continuous cough -Low-sodium diet and fluid restriction of 2 L -Hypotension reflects severe disease, patient has a Bi-V ICD in place -Monitor daily weights, strict I/Os, and based on clinical exam Hypotension -B/Ps light, still with SBPs in the 80-90's, now transferring to the ICU -Orders to check orthostatics per nursing -Per Dr. Mcfadden, Titrate Dobutamine with a starting rate of 2.5mcg/kg/min, day #2 increase to 5mcg/kg/min for SBP no greater than 140 -Hold Coreg for now, continue digoxin -Start IV lasix to improve cardiac function as dobutamine runs -Resume ARB prior to stopping dobutamine -Avoid midodrine or flournef for hypotension -Continue vital signs per ICU protocol, or for symptoms of low B/P such as change in mental status or dizziness Hypoxia -Patient has signs of poor perfusion, with having purple knuckles, purple nail beds and an ongoing cough -Started on Xopenex nebs, incentive spirometry, and Mucinex -Improvement after applying oxygen -Upon admission, the patient was hypoxic in the 70s and 80s on room air which improved to the mid 90s on 2 L of oxygen via nasal cannula -He was weaned off today, but I still recommend chronic, continuous oxygen regardless of oxygen saturation -Known Cor Pulmonale with COPD, so would likely qualify for home oxygen if needed -Continue respiratory cares, Xopenex nebs, Incentive spirometry, and a walking oxygen test prior to discharge Elevated troponin -Troponin was elevated at 109.5, and remained flat at 100.7, now down to 60 t clive (07/30) -No chest pain, but persistent dry cough -Provided continuous oxygen, Xopenex nebulizers, and Mucinex scheduled -Likely demand ischemia due to decompensated HF Acute kidney injury superimposed on CKD -Baseline serum creatinine ~1.6-1.9 -Creatinine was elevated at 2.7 upon admission, now 2.3 -BUN up to 98 -Urine output is lower than expected, strict I/Os -Recommend indwelling lobato to be placed to ensure accurate I/Os -Will be given IV Lasix after dobutamine gtt is running -Routine labs Ischemic cardiomyopathy -EF was 15-30% for many years, most recently was 20%, today preliminary echo shows 10-15% -Status post CABG with valve replacement in 2008, Bi-ventricular ICD in place since March 2016 -Home meds include: digoxin, coreg, metolazone, torsemide, potassium and losartan -Continues on digoxin, now with new recommended -Await new echo, continuous telemetry Bi-Ventricular ICD in place -[employer] card was shown to me with this info: [employer]anne[employer], model # [id number] -Placed on April 08, 2016 -Physician # [phone], customer line [phone] -Continue on telemetry, will need to be de-activated in the event this patient continues to dwindle given the situation he is in 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 [facility] 27-mm aortic valve for severe aortic regurg in the setting of longstanding nonischemic cardiomyopathy -Remains on Warfarin with an INR goal of 2.5-3.5 Elevated INR -Patient is managed by the [place] [facility], but does not think this arrangement is very convenient -INR is elevated at 4.6 Coumadin is on hold -Pharmacy consult for Warfarin management -Rechecked LFTs today showing: ok AST/ALT, but elevated total bili up to 1.7, which is the highest per chart review -Daily INR, keep INR between 2.5-3.5 Chronic atrial fibrillation -Atrial fibrillation is permanent, continues on Coumadin and rate control with Digoxin & coreg -Severe increase in LA volume index -Proceeding with focused treatment with dobutamine with in the ICU, holding Coreg per Dr. Mcfadden -Home meds include: digoxin, Coreg, and anticoagulation is primarily for aortic valve Chronic venous insufficiency -Evidence of long standing perfusion disorders -Also with BPH, and history of CABG (wide-spread vessel disease) -Longstanding tobacco dependence, stopped in 2002 -Advanced pigment changes on both the medial and lateral ankles, extending into the dorsum of the foot -Moderate to large BLEs wounds, non-healing -See chart for photos BPH -Poor quality of life surrounding dysuria with urinary frequency, urgency, excessive nocturia (5-8 times per night) and incomplete bladder emptying -Whole body vessel disease due to hereditary reasons and from tobacco dependence for greater than 30 years -Starting on flomax daily to improve symptoms -May benefit from urology follow up -Bladder scans per shift x24 hours, post void evaluation please COPD -Patient notes that he began smoking cigarettes in 1963, and stopped in 2002 (~39 years) -Now with Cor Pulmonale, patient denies ARNOLD -No spironolactone on home med list, may be due to renal disease
[2019-07-31] MEDS ORDERED: DOBUTamine 500 MG/250 ML 500 MG/250 ML BAG IV SCH ×2 (13:00)
[2019-07-31 13:02] LABS: ALBUMIN 3.6 g/dL (3.2-5.5); BILIRUBIN,DIRECT 0.7 mg/dL (0.1-0.5); BILIRUBIN,TOTAL 1.7 mg/dL (0.2-1.0); TOTAL PROTEIN 7.4 g/dL (6.7-8.2)
--- NOTE | 2019-07-31 13:07 | XRAY Report ---
Reason: pulmonary edema Procedure Date: 07/31/2019 Accession Number: [id number] / [id number] Procedure: XR - Chest 1 View X-Ray CPT Code: 95517 Final Report FULL RESULT: EXAM: CHEST RADIOGRAPHY EXAM DATE: 07/31/2019 12:29 PM. CLINICAL HISTORY: Pulmonary edema. COMPARISON: CHEST 1 VIEW 07/29/2019 8:09 PM CHEST 2 VIEW PA/LAT 01/01/2017 3:36 PM. TECHNIQUE: 1 view. FINDINGS: Lungs/Pleura: Unchanged subpleural scarring in the right base and linear scarring in the right midlung. No focal consolidation or evidence of edema. No pleural effusion or pneumothorax. Mediastinum: Postoperative changes of prior cardiac valve surgery and CABG. Stable cardiomegaly. Left-sided AICD with atrial and epicardial pacing leads and a ventricular defibrillating lead in similar positions. Other: Partial resection of the right fifth rib. Old fracture deformities of the right posterolateral sixth and seventh ribs. Thoracic spine DISH. IMPRESSION: Stable cardiomegaly post open heart surgery, without radiographic evidence for congestive heart failure or other acute cardiopulmonary abnormality. RADIA
[2019-07-31] MEDS: LEVALBUTEROL 1.25 MG/3 ML NEB INH SCH ×3 (13:42→21:20)
[2019-07-31] MEDS ORDERED: LIDOCAINE 2% URO-JET 5 ML SYRINGE UR PRN (14:24)
[2019-07-31] MEDS ORDERED: BENZOCAINE/MENTHOL LOZENGE MM PRN (14:24)
[2019-07-31] MEDS: FUROSEMIDE 40 MG/4 ML VIAL IVP SCH ×2 (15:19→21:50)
--- NOTE | 2019-07-31 17:21 | XRAY Report ---
Reason: line placement Procedure Date: 07/31/2019 Accession Number: [id number] / [id number] Procedure: XR - Chest for Line Placement CPT Code: Final Report FULL RESULT: EXAM: CHEST RADIOGRAPHY EXAM DATE: 07/31/2019 04:58 PM. CLINICAL HISTORY: Line placement. COMPARISON: CHEST 1 VIEW 07/31/2019 12:09 PM. TECHNIQUE: 1 view. FINDINGS: Lungs/Pleura: Decreased right lung volume. Linear scar mid right lung and costophrenic angle. Left perihilar subsegmental lateral leg cyst. Mediastinum: Cardiac enlargement without interval change. Aortic valve prosthesis. Sternotomy wires and mediastinal clips consistent with prior coronary artery bypass graft surgery. Right atrium and right ventricle pacer leads without change in position. Other: Surgical osteotomy right posterior fifth rib. Healed fractures right posterior sixth and seventh ribs. Right internal jugular venous line with the tip at the lower SVC. IMPRESSION: Right internal jugular venous line with the tip of the lower SVC and no pneumothorax identified. RADIA
--- NOTE | 2019-07-31 17:23 | ADVANCE CARE PLANNING NOTE ---
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 He states that just this past fall he was proud to report that he could still carry heavy (40-50 lb) bags of water softener salt out of the store to his truck without too much difficulty. He claims that his daughter, Soni is newly out of residential since being convicted of stealing his checks from his check book, which led to her arrest. He claims, she just never learns and in fact, her mother was the same way, and he worries that his grand-daughter is on the same path as her mother and grand-mother, which gives him great grief. He feels that this is one of the motivating factors in his choice of remaining a FULL code as he feels he has a lot to live for. He worries about what might happen to his daughter if he were no longer alive, which is very scary to him. He also talks about his 2 haven cats, Gino and Peppi, and his 2 house cats, Prakash and [place], who all count on him to be around. Objective/Medical Story: Will Delgado (Jim) is a 73-year-old white, male with a history of what appears to be idiopathic cardiomyopathy, chronic systolic heart failure with an EF of 15 to 20% status post ICD, history of aortic valve replacement with mechanical valve on Coumadin, chronic atrial fibrillation, Col Pulmonale, chronic kidney disease who presents to the ED with a primary complaint of a worsening cough ov er the past 2 to 3 days. He states his cough began about 3 days ago and he has occasional sputum production. He reports no dyspnea but states he has not gotten to ambulate as much as he would like as he has just felt a little weak and the cough has been quite bothersome. He reports that he normally sleeps on his side but lately he has been sleeping upright due to the cough. He has also noticed some worsening lower extremity edema. He reports no chest pain, fevers, chills. He denies any recent sick contacts or travel. He says that he saw his box spring maker last week, Dr. Velasquez. Patient reports he has been compliant with medications he took torsemide 80 mg earlier today. He states he has not really been eating much because he is in the process of getting new dentures or implants. He tells me that his previous dry weight was 165 lbs but that he is currently now 163 lbs despite his worsening lower extremity edema. He feels like he has been losing weight due to his poor oral intake. He states that his cardiomyopathy is of an unknown etiology. He denies any history of heart disease and denies a history of CABG or stents in the past. His INR is elevated and he states this has been poorly controlled since his decreased oral intake. He reports no recent bleeding.In the emergency department, he was found to be afebrile with temperature of 3 6.1 C. His heart was in the 70s and he was in a paced rhythm. Blood pressure was stable at 94/71. He was initially saturating well on room air but when he ambulated, his oxygen saturation dipped into the 70s and 80s on room air. This has improved to the mid 90s on 2 L of oxygen via nasal cannula. Lab revealed a sodium of 134, BUN of 73, creatinine of 2.7. His lactic acid is mildly elevated at 2.4. His BNP is elevated at 1197 and his troponin is 109.5. Influenza was negative. Given his hypoxia with exertion, medicine was consulted for admission. He did receive 40 mg of IV Lasix in the emergency department. An advanced care planning discussion was indicated when after the patients blood pressure would not allow for appropriate diuresis. The patient is found to have a worsening EF of only 10-15% per preliminary echocardiogram. After a lengthy discussion, the patient maintains that he wishes for ICU level care and to continue to be a FULL code. Goals of Care: Maintain independence at home Prevent falls or injury Prevent ED visits or hospital stays Preserve heart function Live as long as possible Plan: Move to the ICU to be placed on a Dobutamine drip per Dr. Mcfadden, Cardiology Continue diuresis Manage symptoms support respiratory system/Respiratory cares Insert indwelling lobato catheter to ensure accurate I/O, monitor kidney function Discharge home when medically stable and diuresis is achieved Wound care consult on Wednesday for BLEs chronic, non-healing wounds Code Status: Attempt Resuscitation Time spent on advance care plannin
[2019-07-31] MEDS: ATORVASTATIN 10 MG TABLET PO SCH (21:49)
[2019-07-31] MEDS: BENZONATATE 100 MG CAPSULE PO PRN (23:40)
[2019-08-01] MEDS ORDERED: AMIODARONE 360 MG/200 ML 200 ML IV ONE (01:15)
[2019-08-01] MEDS ORDERED: AMIODARONE 150 MG/100 ML 100 ML IV ONE (01:15)
[2019-08-01] MEDS: SODIUM CHLORIDE FLUSH 0.9% 10 ML SYRINGE IVP PRN ×3 (01:43→05:07)
[2019-08-01] MEDS: guaiFENesin 100 MG/5 ML UDC PO PRN (05:16)
[2019-08-01] MEDS: AMIODARONE 360 MG/200 ML 200 ML IV SCH ×2 (05:20→07:44)
[2019-08-01 06:19] LABS: BASOPHILS % (AUTO) 0.1 %; EOSINOPHILS % (AUTO) 0.4 %; HGB - HEMOGLOBIN 11.5 g/dL (14.0-18.0); LYMPHOCYTES # (AUTO) 0.7 10^3/uL (1.5-3.5); LYMPHOCYTES % (AUTO) 8.1 %; MEAN CORPUSCULAR HEMOGLOBIN 28.5 pg (27.0-31.0); MEAN CORPUSCULAR HGB CONC 31.4 g/dL (32.0-36.0); MEAN CORPUSCULAR VOLUME 90.6 fL (80.0-94.0); MEAN PLATELET VOLUME 12.3 fL (7.4-11.4); MONOCYTES # (AUTO) 0.9 10^3/uL (0.0-1.0); MONOCYTES % (AUTO) 10.7 %; NEUTROPHILS # (AUTO) 6.7 10^3/uL (1.5-6.6); NEUTROPHILS % (AUTO) 80.2 %; PLT - PLATELET COUNT 139 10^3/uL (130-450); RED BLOOD COUNT 4.04 10^6/uL (4.70-6.10); RED CELL DISTRIBUTION WIDTH 18.5 % (12.0-15.0); WHITE BLOOD COUNT 8.3 x10^3/uL (4.8-10.8)
[2019-08-01 06:24] LABS: INR 4.3 (0.8-1.2); PT - PROTHROMBIN TIME 44.6 secs (9.9-12.6)
[2019-08-01 06:34] LABS: CALCIUM 8.3 mg/dL (8.5-10.3); MAGNESIUM 2.2 mg/dL (1.7-2.8); PHOSPHORUS 4.1 mg/dL (2.5-4.6)
[2019-08-01 06:42] LABS: DIGOXIN 3.5 ng/mL
[2019-08-01] MEDS: SODIUM CHLORIDE FLUSH 0.9% 10 ML SYRINGE IVP SCH ×2 (07:46→17:32)
--- NOTE | 2019-08-01 08:23 | PROVIDER PROGRESS NOTE ---
Assessment/Plan - Problem List (1) Ventricular fibrillation Assessment/Plan: At about 0100 the patient went into VTach which worsened to vflutter. The ICD tried to pace him out of it without success. The vflutter degenerated into vfib. The ICD successfully shocked him out of vfib into a ventricular paced rhythm at rate 70. [facility] was informed. The Dig level was checked and it was excessively high at 3.4. K and troponin were not checked then, but 4 hours later the K is normal this morning. The [facility] stopped Dig and started an Amio drip per protocol (bolus, then 6 hr at 1 mg/kg, then 18 hr at 0.5 mg/kg). This vfib is likely to be caused by the new inotrope, Dobutamine, and stopping Coreg. Will only continue Dobutamine for 24 hours, not 72 hours; stop at 1300 today. Will plan to continue Amio orally after the iv load. Will try to resume Coreg at a very low dose, if BP will allow. (2) Hypotension Assessment/Plan: Dobutamine drip ordered for low BP (and CHF exacerbation). No Midodrine or Flurinef should be used, per Dr Mcfadden's discussion with yesterday's Provider, Jodie Adame, YASMIN. He is warm and dry and mentating with BP in 80's. (3) Acute on chronic HFrEF (heart failure with reduced ejection fraction) Assessment/Plan: He has leg edema and a dry annoyting cough, but no real pulmonary edema. His dry weight was 165 and at presentation he is 163 at admission, but that may have been due to poor nutrition due to dental issue. Also, he admitted to eating new canned food due to dental problems, therefore had a higher salt diet. In addition he had been off Coreg for part of the month, was restarted on 07/20/[address] Mcfadden. The Echo done yesterday shows LVEF 10-15%, biventricular enlargement and poor RV function as well. This appears to be a non-ischemic cardiomyopathy, since there are no regional abnormalities on Echo imaging, but global hypokinesis. Coreg stopped yesterday, while he is on Dobutamine drip. The initial recommendation was for 3 days of iv Dobutamine: 1 day at 2.5 mcg, then increase to 5 mcg. In light of Vfib, will, only give for 24 hours at 2.5 mcg. IV b.i.d. diuretics ordered, his home Metalazone on hold. He is on Losartan at home which is on hold due to low BPs. He was not on Spironolactone due to "trouble". Remain off Losartan due to low BP and cough, remain in ICU, Yang for accurate I's and O's, iv diuretics, cardiac and salt restricted diet with a 2L/d fluid restriction. Will add Robitussin with Codeine for cough and continue Mucinex for expectorating. Follow BMP, Mg, BNP. (4) Acute kidney injury superimposed on CKD Assessment/Plan: Slightly improved creat from 2.3 to 2 today. 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 (5) Venous stasis ulcer Assessment/Plan: Wound Consult requested from [facility] wound nurse for chronic poorly healing leg ulcers. (6) Elevated INR Assessment/Plan: He was on Coumadin. INR target is written as being 2.5-3.5, but that is usually for a mechanical AVR, and the Echo shows a bioprosthetic AVR and exam is consistent with a bioprosthetic AVR. Coumadin still on hold today for INR of 4.3. (7) Chronic atrial fibrillation Assessment/Plan: His rate is controlled since he is paces (BiV paced).\\ He was on Coumadin. (8) S/P AVR Assessment/Plan: He appears to have a bioprosthetic AVR, per Echo and per the physical exam. Coumadin must have been started for Afib; plan as above. (9) Biventricular ICD (implantable cardioverter-defibrillator) in place Assessment/Plan: As in #1. He is mostly pacing on telemetry, which is appropriate. There was an Advanced Care Plan conference yesterday, and he wishes to be a Full Code. If that plan changes, his ICD would need to be deactivated. (10) Cor pulmonale Assessment/Plan: Echo confirmed R sided enlargementy and poor RV function. This bodes a poor prognosis. (11) COPD (chronic obstructive pulmonary disease) Assessment/Plan: Not in exacerbation currently. O2 and Xopenex ordered. (12) Pain, dental Assessment/Plan: He told me today that a dentist in [place] puylled his teeth and the gums are still sore, for that reason his diet was poor and itr ios still hard to taker a diet. he also described that Dr Mcfadden told the patient he can stop the Coumadin for 3-4 days to have the teeth pulled, but the patient did not and did not have alot of bleeding. Diet adjustment ordered. (13) BPH (benign prostatic hyperplasia) Assessment/Plan: Flomax started. Yang in place. - Current Meds Current Meds: Current Medications Generic Name Dose Route Start Last Admin Trade Name Freq PRN Reason Stop Dose Admin Atorvastatin Calcium 10 mg 07/30/19 21:00 07/31/19 21:49 Lipitor PO 10 mg QPM EITAN Administration Bacitracin 28.4 gm 07/30/19 15:00 07/31/19 11:16 Bacitracin Zinc Oint TOP 28.4 gm DAILY EITAN Administration Benzonatate 100 mg 07/29/19 23:51 07/31/19 23:40 Tessalon PO 100 mg TID PRN Administration Cough Guaifenesin 100 mg 07/29/19 23:51 08/01/19 05:16 Robitussin Liquid PO 100 mg Q6HR PRN Administration Cough Guaifenesin 600 mg 07/30/19 10:00 07/31/19 21:49 Mucinex PO 600 mg BID EITAN Administration Dobutamine HCl/Dextrose 500 mg in 250 mls @ 5.7 mls/hr 07/31/19 13:00 08/01/19 05:20 Dobutamine IV 08/01/19 13:00 2.5 mcg/kg/min .[id number] EITAN 5.7 mls/hr Titration Protocol 2.5 MCG/KG/MIN Amiodarone HCl/Dextrose 200 mls @ 16.667 mls/hr 08/01/19 02:00 08/01/19 07:44 Nexterone 360 Mg/200 Ml IV 0.5 mg/min .Q12H EITAN 16.667 mls/hr Administration 0.5 MG/MIN Levalbuterol HCl 1.25 mg 07/31/19 19:00 07/31/19 21:20 Xopenex INH 1.25 mg RTQID EITAN Administration Lidocaine HCl 2.5 ml 07/31/19 14:24 07/31/19 15:07 Xylocaine Uro-Jet 2% UR 2.5 ml Q6H PRN Administration PAIN Ondansetron HCl 4 mg 07/29/19 21:29 07/30/19 17:43 Zofran Inj IVP 4 mg Q6HR PRN Administration Nausea / Vomiting Polyethylene Glycol 17 gm 07/30/19 09:00 07/31/19 09:30 Miralax PO Not Given DAILY EITAN Sodium Chloride 10 ml 07/29/19 21:29 08/01/19 05:07 Normal Saline Flush 0.9% IVP 10 ml PRN PRN Administration NEEDED PER PROVIDER ORDERS Sodium Chloride 10 ml 07/30/19 01:00 08/01/19 07:46 Normal Saline Flush 0.9% IVP 10 ml 0100,0900,1700 EITAN Administration Sodium Chloride 20 ml 07/31/19 23:30 08/01/19 05:07 Normal Saline Flush 0.9% IVP 20 ml PRN PRN Administration After Blood Draw - Lab Result Fish Bone Diagrams: 08/01/19 05:18 08/01/19 05:18 Subjective - Subjective Patient Reports: Cough (He has a dry cough which he has had for weeks) Nursing Reports: Shortness of Breath Objective Vital Signs: Vital Signs - 24 hr 07/31/19 07/31/19 07/31/19 10:14 12:42 13:04 Temperature 35.9 C L 36.4 C L Heart Rate Heart Rate [ 77 Brachial] Heart Rate [ 87 Monitoring electrodes] Respiratory 18 16 Rate Blood Pressure 99/82 H [Left Brachial artery] Blood Pressure 93/53 L 97/67 [Right Brachial artery] O2 Saturation 92 07/31/19 07/31/19 07/31/19 13:25 13:30 13:35 Temperature Heart Rate Heart Rate [ Brachial] Heart Rate [ 91 81 81 Monitoring electrodes] Respiratory 21 18 Rate Blood Pressure [Left Brachial artery] Blood Pressure 97/62 121/53 L 99/73 [Right Brachial artery] O2 Saturation 91 L 07/31/19 07/31/19 07/31/19 13:42 13:45 13:50 Temperature Heart Rate 90 Heart Rate [ Brachial] Heart Rate [ 85 79 Monitoring electrodes] Respiratory 16 Rate Blood Pressure [Left Brachial artery] Blood Pressure 89/73 L 99/79 [Right Brachial artery] O2 Saturation 07/31/19 07/31/19 07/31/19 13:55 14:00 14:05 Temperature Heart Rate Heart Rate [ Brachial] Heart Rate [ 89 89 87 Monitoring electrodes] Respiratory Rate Blood Pressure [Left Brachial artery] Blood Pressure 113/92 H 127/115 H 136/120 H [Right Brachial artery] O2 Saturation 07/31/19 07/31/19 07/31/19 14:10 14:15 15:36 Temperature 36.5 C Heart Rate Heart Rate [ Brachial] Heart Rate [ 89 Monitoring electrodes] Respiratory Rate Blood Pressure [Left Brachial artery] Blood Pressure 132/108 H 153/137 H [Right Brachial artery] O2 Saturation 07/31/19 07/31/19 07/31/19 16:08 17:00 19:00 Temperature 36.5 C Heart Rate Heart Rate [ Brachial] Heart Rate [ 100 91 97 Monitoring electrodes] Respiratory 15 16 15 Rate Blood Pressure [Left Brachial artery] Blood Pressure 128/61 106/80 88/63 L [Right Brachial artery] O2 Saturation 96 100 07/31/19 07/31/19 07/31/19 19:30 20:00 20:30 Temperature 36.5 C Heart Rate Heart Rate [ Brachial] Heart Rate [ 95 98 84 Monitoring electrodes] Respiratory 19 21 19 Rate Blood Pressure [Left Brachial artery] Blood Pressure 87/57 L 100/59 L 102/72 [Right Brachial artery] O2 Saturation 100 100 07/31/19 07/31/19 07/31/19 21:00 21:26 21:30 Temperature Heart Rate 91 Heart Rate [ Brachial] Heart Rate [ 80 91 Monitoring electrodes] Respiratory 15 20 15 Rate Blood Pressure [Left Brachial artery] Blood Pressure 87/58 L 97/74 [Right Brachial artery] O2 Saturation 100 99 07/31/19 07/31/19 08/01/19 22:00 23:00 00:00 Temperature Heart Rate Heart Rate [ Brachial] Heart Rate [ 88 81 94 Monitoring electrodes] Respiratory 19 15 17 Rate Blood Pressure [Left Brachial artery] Blood Pressure 97/76 97/51 L 86/52 L [Right Brachial artery] O2 Saturation 100 99 94 08/01/19 08/01/19 08/01/19 01:00 01:45 01:50 Temperature Heart Rate Heart Rate [ Brachial] Heart Rate [ 101 H 90 95 Monitoring electrodes] Respiratory 20 18 17 Rate Blood Pressure [Left Brachial artery] Blood Pressure 101/75 86/55 L 83/52 L [Right Brachial artery] O2 Saturation 100 97 97 08/01/19 08/01/19 08/01/19 01:57 02:00 02:05 Temperature Heart Rate Heart Rate [ Brachial] Heart Rate [ 75 81 81 Monitoring electrodes] Respiratory 22 19 19 Rate Blood Pressure [Left Brachial artery] Blood Pressure 92/49 L 82/51 L 85/54 L [Right Brachial artery] O2 Saturation 98 98 98 08/01/19 08/01/19 08/01/19 02:10 02:15 02:20 Temperature Heart Rate Heart Rate [ Brachial] Heart Rate [ 85 75 80 Monitoring electrodes] Respiratory 19 17 16 Rate Blood Pressure [Left Brachial artery] Blood Pressure 85/61 L 87/50 L 87/48 L [Right Brachial artery] O2 Saturation 98 98 98 08/01/19 08/01/19 08/01/19 02:25 02:30 02:36 Temperature Heart Rate Heart Rate [ Brachial] Heart Rate [ 79 76 85 Monitoring electrodes] Respiratory 15 18 20 Rate Blood Pressure [Left Brachial artery] Blood Pressure 96/50 L 96/55 L 96/51 L [Right Brachial artery] O2 Saturation 98 97 98 08/01/19 08/01/19 08/01/19 02:40 02:45 03:00 Temperature Heart Rate Heart Rate [ Brachial] Heart Rate [ 78 75 75 Monitoring electrodes] Respiratory 15 18 17 Rate Blood Pressure [Left Brachial artery] Blood Pressure 91/65 88/53 L 86/51 L [Right Brachial artery] O2 Saturation 98 99 99 08/01/19 08/01/19 08/01/19 03:15 03:30 03:45 Temperature Heart Rate Heart Rate [ Brachial] Heart Rate [ 75 78 74 Monitoring electrodes] Respiratory 15 16 17 Rate Blood Pressure [Left Brachial artery] Blood Pressure 78/67 L 85/56 L 75/66 L [Right Brachial artery] O2 Saturation 99 98 100 08/01/19 08/01/19 08/01/19 04:00 04:15 04:30 Temperature Heart Rate Heart Rate [ Brachial] Heart Rate [ 75 74 77 Monitoring electrodes] Respiratory 14 20 26 H Rate Blood Pressure [Left Brachial artery] Blood Pressure 105/59 L 99/58 L 86/50 L [Right Brachial artery] O2 Saturation 100 99 100 08/01/19 08/01/19 08/01/19 04:45 05:00 05:15 Temperature Heart Rate Heart Rate [ Brachial] Heart Rate [ 77 81 77 Monitoring electrodes] Respiratory 17 17 20 Rate Blood Pressure 99/76 95/62 [Left Brachial artery] Blood Pressure 92/51 L [Right Brachial artery] O2 Saturation 100 100 95 08/01/19 08/01/19 08/01/19 05:30 05:45 06:00 Temperature Heart Rate Heart Rate [ Brachial] Heart Rate [ 75 72 72 Monitoring electrodes] Respiratory 16 21 15 Rate Blood Pressure 91/59 L 93/59 L 91/54 L [Left Brachial artery] Blood Pressure [Right Brachial artery] O2 Saturation 100 100 100 08/01/19 08/01/19 08/01/19 06:15 06:30 06:45 Temperature Heart Rate Heart Rate [ Brachial] Heart Rate [ 79 71 71 Monitoring electrodes] Respiratory 15 16 16 Rate Blood Pressure 83/57 L 92/61 101/65 [Left Brachial artery] Blood Pressure [Right Brachial artery] O2 Saturation 100 99 100 08/01/19 07:00 Temperature Heart Rate Heart Rate [ Brachial] Heart Rate [ 73 Monitoring electrodes] Respiratory 15 Rate Blood Pressure 96/57 L [Left Brachial artery] Blood Pressure [Right Brachial artery] O2 Saturation 100 Oxygen O2 Source Nasal cannula Oxygen Flow Rate 2 I&O (Last 24 Hrs): Intake and Output Totals x24h 07/30/19 07/31/19 08/01/19 23:59 23:59 23:59 Intake Total 1240 789.577 737.643 Output Total 100 1370 520 Balance 1140 -580.423 217.643 General: Alert, Oriented x3, Other (Temporal wasting. Coughing constantly during my visit.) HEENT: Mucous membr. moist/pink, Other (edentulous) Neck: Supple Neuro: Alert, Non Focal Cardiovascular: Regular rate, No murmurs, Other (Distant heart sounds, no mechaniucal valve clicks heard.) Respiratory: Other (Poor air movement, no wheezing or rales or rhonchi) Abdomen: Soft, Other (Mildly distended and cannot R/O ascites) Extremities: Other (1+ edema, venous stasis of shins and purple-red above bilateral ankles, now gauze wrapped.) - Results Results: Laboratory Results WBC 8.3 x10^3/uL (4.8-10.8) 08/01/19 05:18 RBC 4.04 10^6/uL (4.70-6.10) L 08/01/19 05:18 Hgb 11.5 g/dL (14.0-18.0) L 08/01/19 05:18 Hct 36.6 % (42.0-52.0) L 08/01/19 05:18 MCV 90.6 fL (80.0-94.0) 08/01/19 05:18 MCH 28.5 pg (27.0-31.0) 08/01/19 05:18 MCHC 31.4 g/dL (32.0-36.0) L 08/01/19 05:18 RDW 18.5 % (12.0-15.0) H 08/01/19 05:18 Plt Count 139 10^3/uL (130-450) 08/01/19 05:18 MPV 12.3 fL (7.4-11.4) H 08/01/19 05:18 Neut # (Auto) 6.7 10^3/uL (1.5-6.6) H 08/01/19 05:18 Lymph # (Auto) 0.7 10^3/uL (1.5-3.5) L 08/01/19 05:18 [place] # (Auto) 0.9 10^3/uL (0.0-1.0) 08/01/19 05:18 Eos # (Auto) 0.0 10^3/uL (0.0-0.7) 08/01/19 05:18 Baso # (Auto) 0.0 10^3/uL (0.0-0.1) 08/01/19 05:18 Absolute Nucleated RBC 0.00 x10^3/uL 08/01/19 05:18 Nucleated RBC % 0.0 /100WBC 08/01/19 05:18 PT 44.6 secs (9.9-12.6) H 08/01/19 05:18 INR 4.3 (0.8-1.2) H 08/01/19 05:18 APTT 50.0 secs (24.9-33.3) H 07/29/19 20:18 Sodium 134 mmol/L (135-145) L 08/01/19 05:18 Potassium 3.5 mmol/L (3.5-5.0) 08/01/19 05:18 Chloride 93 mmol/L (101-111) L 08/01/19 05:18 Carbon Dioxide 28 mmol/L (21-32) 08/01/19 05:18 Anion Gap 13.0 (6-13) 08/01/19 05:18 BUN 90 mg/dL (6-20) H* 08/01/19 05:18 Creatinine 2.0 mg/dL (0.6-1.2) H 08/01/19 05:18 Estimated GFR (MDRD) 33 (>89) L 08/01/19 05:18 Glucose 113 mg/dL (70-100) H 08/01/19 05:18 Lactic Acid 1.7 mmol/L (0.5-2.2) 07/29/19 22:44 Calcium 8.3 mg/dL (8.5-10.3) L 08/01/19 05:18 Phosphorus 4.1 mg/dL (2.5-4.6) 08/01/19 05:18 Magnesium 2.2 mg/dL (1.7-2.8) 08/01/19 05:18 Total Bilirubin 1.7 mg/dL (0.2-1.0) H 07/31/19 12:25 Direct Bilirubin 0.7 mg/dL (0.1-0.5) H 07/31/19 12:25 AST 30 IU/L (10-42) 07/31/19 12:25 ALT 15 IU/L (10-60) 07/31/19 12:25 Alkaline Phosphatase 121 IU/L (42-121) 07/31/19 12:25 Total Creatine Kinase 162 IU/L (22-269) 07/29/19 20:18 Troponin I High Sens 78.2 ng/L (2.3-19.7) H* 08/01/19 05:18 B-Natriuretic Peptide 1137 pg/mL (5-100) H 07/31/19 05:54 Total Protein 7.4 g/dL (6.7-8.2) 07/31/19 12:25 Albumin 3.6 g/dL (3.2-5.5) 07/31/19 12:25 Globulin 3.8 g/dL (2.1-4.2) 07/31/19 12:25 Albumin/Globulin Ratio 1.0 (1.0-2.2) 07/29/19 20:18 Lipase 34 U/L (22-51) 07/29/19 20:18 Urine Color YELLOW 07/29/19 20:45 Urine Clarity CLEAR (CLEAR) 07/29/19 20:45 Urine pH 5.0 PH (5.0-7.5) 07/29/19 20:45 Ur Specific [place] 1.020 (1.002-1.030) 07/29/19 20:45 Urine Protein TRACE mg/dL (NEGATIVE) 07/29/19 20:45 Urine Glucose (UA) NEGATIVE mg/dL (NEGATIVE) 07/29/19 20:45 Urine Ketones NEGATIVE mg/dL (NEGATIVE) 07/29/19 20:45 Urine Occult Blood NEGATIVE (NEGATIVE) 07/29/19 20:45 Urine Nitrite NEGATIVE (NEGATIVE) 07/29/19 20:45 Urine Bilirubin NEGATIVE (NEGATIVE) 07/29/19 20:45 Urine Urobilinogen 0.2 (NORMAL) E.U./dL (NORMAL) 07/29/19 20:45 Ur Leukocyte Esterase NEGATIVE (NEGATIVE) 07/29/19 20:45 Ur Microscopic Review NOT INDICATED 07/29/19 20:45 Urine Culture Comments NOT INDICATED 07/29/19 20:45 Nasal Screen MRSA (PCR) NEGATIVE (NEGATIVE) 07/31/19 13:15 Last Dose Date 07/30/18 08/01/19 05:18 Last Dose Time 0827 08/01/19 05:18 Digoxin 3.5 ng/mL H* 08/01/19 05:18 Urine Opiates Screen POSITIVE (NEGATIVE) H 07/30/19 18:30 Ur Oxycodone Screen NEGATIVE (NEGATIVE) 07/30/19 18:30 Urine Methadone Screen NEGATIVE (NEGATIVE) 07/30/19 18:30 Ur Propoxyphene Screen NEGATIVE (NEGATIVE) 07/30/19 18:30 Ur Barbiturates Screen NEGATIVE (NEGATIVE) 07/30/19 18:30 Ur Tricyclics Screen NEGATIVE (NEGATIVE) 07/30/19 18:30 Ur Phencyclidine Scrn NEGATIVE (NEGATIVE) 07/30/19 18:30 Ur Amphetamine Screen NEGATIVE (NEGATIVE) 03/22/20 18:30 U Methamphetamines Scrn NEGATIVE (NEGATIVE) 07/30/19 18:30 U Benzodiazepines Scrn NEGATIVE (NEGATIVE) 07/30/19 18:30 Urine Cocaine Screen NEGATIVE (NEGATIVE) 07/30/19 18:30 U Cannabinoids Screen NEGATIVE (NEGATIVE) 07/30/19 18:30 Influenza A (Rapid) Negative (Negative) 07/29/19 20:30 Influenza B (Rapid) Negative (Negative) 07/29/19 20:30
[2019-08-01] MEDS: LEVALBUTEROL 1.25 MG/3 ML NEB INH SCH ×4 (08:36→22:47)
[2019-08-01] MEDS ORDERED: FUROSEMIDE 100 MG/10 ML VIAL IVP SCH (09:00)
[2019-08-01] MEDS: guaiFENesin 600 MG TABLET PO SCH ×2 (09:11→20:19)
[2019-08-01] MEDS: BACITRACIN ZINC OINT 28.4 GM TUBE TOP SCH (09:11)
[2019-08-01] MEDS: MULTIVITAMIN W/MINERALS TABLET PO SCH (09:25)
[2019-08-01] MEDS: SPIRONOLACTONE 25 MG TABLET PO SCH (14:58)
[2019-08-01] MEDS: polyethylene glycoL 3350 17 GM PACKET PO SCH (17:31)
[2019-08-01] MEDS: ATORVASTATIN 10 MG TABLET PO SCH (20:19)
[2019-08-01] MEDS: ACETAMINOPHEN 325 MG TABLET PO PRN (20:19)
[2019-08-01] MEDS: BENZONATATE 100 MG CAPSULE PO PRN (20:19)
[2019-08-01] MEDS ORDERED: FUROSEMIDE 20 MG/2 ML VIAL IVP STA (21:44)
[2019-08-01] MEDS: FUROSEMIDE 100 MG/10 ML VIAL IVP SCH (21:47)
[2019-08-01] MEDS ORDERED: FUROSEMIDE 20 MG/2 ML VIAL IVP ONE (21:51)
[2019-08-02] MEDS: SODIUM CHLORIDE FLUSH 0.9% 10 ML SYRINGE IVP SCH ×3 (00:58→17:22)
[2019-08-02] MEDS: AMIODARONE 360 MG/200 ML 200 ML IV SCH ×2 (02:21→12:04)
[2019-08-02 05:12] LABS: BASOPHILS % (AUTO) 0.3 %; EOSINOPHILS # (AUTO) 0.1 10^3/uL (0.0-0.7); EOSINOPHILS % (AUTO) 1.3 %; HGB - HEMOGLOBIN 11.6 g/dL (14.0-18.0); LYMPHOCYTES # (AUTO) 0.8 10^3/uL (1.5-3.5); LYMPHOCYTES % (AUTO) 10.8 %; MEAN CORPUSCULAR HEMOGLOBIN 28.6 pg (27.0-31.0); MEAN CORPUSCULAR HGB CONC 31.2 g/dL (32.0-36.0); MEAN CORPUSCULAR VOLUME 91.9 fL (80.0-94.0); MEAN PLATELET VOLUME 11.8 fL (7.4-11.4); MONOCYTES # (AUTO) 0.9 10^3/uL (0.0-1.0); MONOCYTES % (AUTO) 13.1 %; NEUTROPHILS # (AUTO) 5.2 10^3/uL (1.5-6.6); NEUTROPHILS % (AUTO) 74.1 %; PLT - PLATELET COUNT 121 10^3/uL (130-450); RED BLOOD COUNT 4.05 10^6/uL (4.70-6.10); RED CELL DISTRIBUTION WIDTH 19.3 % (12.0-15.0)
[2019-08-02 05:14] LABS: INR 3.6 (0.8-1.2); PT - PROTHROMBIN TIME 38.5 secs (9.9-12.6)
[2019-08-02 05:19] LABS: CALCIUM 8.4 mg/dL (8.5-10.3); CREATININE 2.2 mg/dL (0.6-1.2); MAGNESIUM 2.4 mg/dL (1.7-2.8); PHOSPHORUS 4.7 mg/dL (2.5-4.6)
[2019-08-02] MEDS: guaiFENesin/CODEINE 5 ML UDC PO PRN (05:25)
[2019-08-02] MEDS: ACETAMINOPHEN 325 MG TABLET PO PRN ×2 (05:25→17:23)
[2019-08-02] MEDS: SODIUM CHLORIDE FLUSH 0.9% 10 ML SYRINGE IVP PRN ×2 (05:26)
[2019-08-02] MEDS: LEVALBUTEROL 1.25 MG/3 ML NEB INH SCH ×4 (07:52→21:30)
[2019-08-02] MEDS: MULTIVITAMIN W/MINERALS TABLET PO SCH (08:28)
[2019-08-02] MEDS: FUROSEMIDE 100 MG/10 ML VIAL IVP SCH (08:28)
[2019-08-02] MEDS: guaiFENesin 600 MG TABLET PO SCH ×2 (08:28→20:53)
[2019-08-02] MEDS: polyethylene glycoL 3350 17 GM PACKET PO SCH (08:28)
[2019-08-02] MEDS: BACITRACIN ZINC OINT 28.4 GM TUBE TOP SCH (08:28)
[2019-08-02] MEDS: AMIODARONE 200 MG TABLET PO SCH ×2 (08:29→20:53)
[2019-08-02] MEDS: SPIRONOLACTONE 25 MG TABLET PO SCH (12:19)
--- NOTE | 2019-08-02 14:03 | PROVIDER PROGRESS NOTE ---
Assessment/Plan - Problem List (1) Ventricular fibrillation Assessment/Plan: No further episodes of VT or vfib. The patient's ICD appropriately treated the vfib event yesterday. He received a 24 hour iv load of Amiodarone in the ICU and will start po Amiodarone today. Transfer to telemetry MedSur bed today to assess with increased activity. (2) Hypotension Assessment/Plan: He runs "soft" BP and tolerates them with good mentation. Will transfer out of ICU today. Continue TEDS stockings in case he has orthostasis. Start PT ambulation. Changing iv to po loop diuretic. Continue and stagger po Spironolactone. Oral Amiodarone now being used, no Coreg or Losartan due to low BP. Using Hydralazine plus Nitrates will be difficult with his low BP. (3) Acute on chronic HFrEF (heart failure with reduced ejection fraction) Assessment/Plan: The BNP is better. His fluid balance is balanced, not negative, despite his fluid restriction orders, since he got significant iv fluids when he was on iv Dobutamine and iv Amiodarone. Will change iv bid diuretics to po bid diuretics today, to assess if this keeps him diuresing. Coreg and Losartan were stopped when BP was low and when he was on iv Dobutamine. Then Amiodarone was started po after iv Amio load, and Coreg not resumed, due to low BP. Continue O2 supplemental, which is down to 2L per n.c. He will need an oximetry walk test for possible new home O2 order, when he is ready for DCh. (4) Acute kidney injury superimposed on CKD Assessment/Plan: The creat evette from 2>> 2.2 today, after iv diuresis for 2 days. Will change to po Lasix today. Avoid nephrotoxins. Follow BMP daily. (5) Venous stasis ulcer Assessment/Plan: Wound RN saw him yesterday and advised topical management, which was ordered. It needs to be done q3days. (6) Elevated INR Assessment/Plan: He claims he is on Coumadin for a mechanical AVR, but the Echo shows a bioprosthetic AVR and I do not hear mechanical valve sounds. He probably is on Coiumadin for stroke prophylaxis for chronic Afib. It is unclear why the previous provider wrote that the target INR is 2.5-3.5. Follow INR daily, and will choose 2-3 as his target. (7) Chronic atrial fibrillation Assessment/Plan: As above (8) S/P AVR Assessment/Plan: As above. (9) Biventricular ICD (implantable cardioverter-defibrillator) in place Assessment/Plan: Pacing appropriately seen on telemetry as well as the appropriate ICD treatment of his vfib yesterday at 0100. (10) Cor pulmonale Assessment/Plan: He claims he has no COPD Dx. The Echo done several days ago does show worsening PA pressure and the dilated RV with poor RV function. His BP will be very pre-load dependant, therefore: excessive diuresis will drop BP. RV failure in the presence of LV failure also gives him a poor 1 year prognosis. (11) COPD (chronic obstructive pulmonary disease) Assessment/Plan: He described no Hx of COPD but was on a home puffer. (12) Pain, dental Assessment/Plan: Pain meds prn and diet was adjusted to soft. (13) BPH (benign prostatic hyperplasia) Assessment/Plan: He is on his home Flomax at hs. - Current Meds Current Meds: Current Medications Generic Name Dose Route Start Last Admin Trade Name Freq PRN Reason Stop Dose Admin Acetaminophen 650 mg 07/29/19 21:29 08/02/19 05:25 Tylenol PO 650 mg Q4HR PRN Administration Pain 1 to 4 Amiodarone HCl 200 mg 08/02/19 09:00 08/02/19 08:29 Pacerone PO 200 mg BID EITAN Administration Atorvastatin Calcium 10 mg 07/30/19 21:00 08/01/19 20:19 Lipitor PO 10 mg QPM EITAN Administration Bacitracin 28.4 gm 07/30/19 15:00 08/02/19 08:28 Bacitracin Zinc Oint TOP 28.4 gm DAILY EITAN Administration Benzonatate 100 mg 07/29/19 23:51 08/01/19 20:19 Tessalon PO 100 mg TID PRN Administration Cough Guaifenesin 600 mg 07/30/19 10:00 08/02/19 08:28 Mucinex PO 600 mg BID EITAN Administration Guaifenesin/Codeine Phosphate 5 ml 08/01/19 16:28 08/02/19 05:25 Robitussin Ac PO 5 ml Q6HR PRN Administration Cough Heparin Sodium (Beef Lung) 30 - 50 unit 07/31/19 23:30 08/02/19 11:45 IVP 150 unit PRN PRN Administration Central Line Protocol (<24 hr) Amiodarone HCl/Dextrose 200 mls @ 16.667 mls/hr 08/01/19 02:00 08/02/19 12:04 Nexterone 360 Mg/200 Ml IV Not Given .Q12H EITAN 0.5 MG/MIN Levalbuterol HCl 1.25 mg 07/31/19 19:00 08/02/19 11:55 Xopenex INH 1.25 mg RTQID EITAN Administration Lidocaine HCl 2.5 ml 07/31/19 14:24 07/31/19 15:07 Xylocaine Uro-Jet 2% UR 2.5 ml Q6H PRN Administration PAIN Multivitamins/Minerals 1 tab 08/01/19 09:00 08/02/19 08:28 Theragran M PO 1 tab DAILYWM EITAN Administration Ondansetron HCl 4 mg 07/29/19 21:29 07/30/19 17:43 Zofran Inj IVP 4 mg Q6HR PRN Administration Nausea / Vomiting Polyethylene Glycol 17 gm 07/30/19 09:00 08/02/19 08:28 Miralax PO 17 gm DAILY EITAN Administration Sodium Chloride 10 ml 07/29/19 21:29 08/02/19 05:26 Normal Saline Flush 0.9% IVP 10 ml PRN PRN Administration NEEDED PER PROVIDER ORDERS Sodium Chloride 10 ml 07/30/19 01:00 08/02/19 08:29 Normal Saline Flush 0.9% IVP 10 ml 0100,0900,1700 EITAN Administration Sodium Chloride 20 ml 07/31/19 23:30 08/02/19 05:26 Normal Saline Flush 0.9% IVP 20 ml PRN PRN Administration After Blood Draw Spironolactone 12.5 mg 08/01/19 12:00 08/02/19 12:19 Aldactone PO 12.5 mg 1200 EITAN Administration - Lab Result Fish Bone Diagrams: 08/02/19 04:25 08/02/19 04:25 - Additional Planning My Orders: My Active Orders 08/01/19 16:28 guaiFENesin/CODEINE [Robitussin AC] 5 ml PO Q6HR PRN 08/02/19 Evaluate and Treat OT [OT] Routine Evaluate and Treat PT [PT] Routine 08/02/19 08:08 Miscellaenous Nursing Order [RC] QSHIFT 08/02/19 09:00 Amiodarone [Pacerone] 200 mg PO BID 08/02/19 14:00 Furosemide [Lasix] 40 mg PO BIDDIURETIC Subjective - Subjective Patient Reports: Feeling Better, Cough (Much less frequent coughing since started on Robitussin with Codeine.) Objective Vital Signs: Vital Signs - 24 hr 08/01/19 08/01/19 08/01/19 15:00 16:00 17:00 Temperature 36.4 C L 36.4 C L Heart Rate Heart Rate [ 70 70 75 Monitoring electrodes] Respiratory 16 20 17 Rate Blood Pressure 94/52 L 78/56 L 91/66 [Left Brachial artery] O2 Saturation 98 98 100 08/01/19 08/01/19 08/01/19 18:00 18:15 19:00 Temperature Heart Rate Heart Rate [ 72 70 74 Monitoring electrodes] Respiratory 20 17 17 Rate Blood Pressure 91/71 101/58 L 108/97 H [Left Brachial artery] O2 Saturation 100 100 100 08/01/19 08/01/19 08/01/19 20:00 21:00 22:00 Temperature 36.4 C L Heart Rate Heart Rate [ 71 71 71 Monitoring electrodes] Respiratory 12 16 19 Rate Blood Pressure 122/94 H 89/57 L 86/58 L [Left Brachial artery] O2 Saturation 99 100 08/01/19 08/01/19 08/02/19 22:48 23:00 00:00 Temperature Heart Rate 75 Heart Rate [ 71 72 Monitoring electrodes] Respiratory 20 19 16 Rate Blood Pressure 100/88 H 88/56 L [Left Brachial artery] O2 Saturation 100 100 08/02/19 08/02/19 08/02/19 01:00 02:00 03:00 Temperature Heart Rate Heart Rate [ 71 73 76 Monitoring electrodes] Respiratory 15 17 18 Rate Blood Pressure 82/63 L 94/58 L 93/58 L [Left Brachial artery] O2 Saturation 98 98 100 08/02/19 08/02/19 08/02/19 04:00 05:00 05:20 Temperature 36.4 C L Heart Rate Heart Rate [ 76 70 72 Monitoring electrodes] Respiratory 19 14 20 Rate Blood Pressure 92/64 92/65 [Left Brachial artery] O2 Saturation 99 99 99 08/02/19 08/02/19 08/02/19 06:00 07:50 08:00 Temperature 36.3 C L Heart Rate 72 Heart Rate [ 72 76 Monitoring electrodes] Respiratory 13 14 16 Rate Blood Pressure 92/63 92/63 [Left Brachial artery] O2 Saturation 98 99 08/02/19 08/02/19 08/02/19 09:00 10:00 11:00 Temperature Heart Rate Heart Rate [ 79 76 75 Monitoring electrodes] Respiratory 17 17 17 Rate Blood Pressure 106/50 L 93/59 L 83/64 L [Left Brachial artery] O2 Saturation 100 100 100 08/02/19 08/02/19 11:51 11:55 Temperature Heart Rate 67 Heart Rate [ 74 Monitoring electrodes] Respiratory 14 18 Rate Blood Pressure 81/55 L [Left Brachial artery] O2 Saturation 2 L Oxygen O2 Source Nasal cannula Oxygen Flow Rate 2 I&O (Last 24 Hrs): Intake and Output Totals x24h 07/31/19 08/01/19 08/02/19 23:59 23:59 23:59 Intake Total 530.923 8422.423 290 Output Total 1370 847 354 Balance -426.864 6369.423 -64 General: Alert, Oriented x3 HEENT: Mucous membr. moist/pink Neck: Supple Neuro: Alert, Non Focal Cardiovascular: Other (Distant heart sounds) Respiratory: Other (Scattered rhonchi, no wheezing or rales) Abdomen: Soft Extremities: No edema - Results Results: Laboratory Results WBC 7.0 x10^3/uL (4.8-10.8) 08/02/19 04:25 RBC 4.05 10^6/uL (4.70-6.10) L 08/02/19 04:25 Hgb 11.6 g/dL (14.0-18.0) L 08/02/19 04:25 Hct 37.2 % (42.0-52.0) L 08/02/19 04:25 MCV 91.9 fL (80.0-94.0) 08/02/19 04:25 MCH 28.6 pg (27.0-31.0) 08/02/19 04:25 MCHC 31.2 g/dL (32.0-36.0) L 08/02/19 04:25 RDW 19.3 % (12.0-15.0) H 08/02/19 04:25 Plt Count 121 10^3/uL (130-450) L 08/02/19 04:25 MPV 11.8 fL (7.4-11.4) H 08/02/19 04:25 Neut # (Auto) 5.2 10^3/uL (1.5-6.6) 08/02/19 04:25 Lymph # (Auto) 0.8 10^3/uL (1.5-3.5) L 08/02/19 04:25 Rich # (Auto) 0.9 10^3/uL (0.0-1.0) 08/02/19 04:25 Eos # (Auto) 0.1 10^3/uL (0.0-0.7) 08/02/19 04:25 Baso # (Auto) 0.0 10^3/uL (0.0-0.1) 08/02/19 04:25 Absolute Nucleated RBC 0.00 x10^3/uL 08/02/19 04:25 Nucleated RBC % 0.0 /100WBC 08/02/19 04:25 PT 38.5 secs (9.9-12.6) H 08/02/19 04:25 INR 3.6 (0.8-1.2) H 08/02/19 04:25 APTT 50.0 secs (24.9-33.3) H 07/29/19 20:18 Sodium 131 mmol/L (135-145) L 08/02/19 04:25 Potassium 3.7 mmol/L (3.5-5.0) 08/02/19 04:25 Chloride 92 mmol/L (101-111) L 08/02/19 04:25 Carbon Dioxide 26 mmol/L (21-32) 08/02/19 04:25 Anion Gap 13.0 (6-13) 08/02/19 04:25 BUN 90 mg/dL (6-20) H* 08/02/19 04:25 Creatinine 2.2 mg/dL (0.6-1.2) H 08/02/19 04:25 Estimated GFR (MDRD) 29 (>89) L 08/02/19 04:25 Glucose 98 mg/dL (70-100) 08/02/19 04:25 Lactic Acid 1.7 mmol/L (0.5-2.2) 07/29/19 22:44 Calcium 8.4 mg/dL (8.5-10.3) L 08/02/19 04:25 Phosphorus 4.7 mg/dL (2.5-4.6) H 08/02/19 04:25 Magnesium 2.4 mg/dL (1.7-2.8) 08/02/19 04:25 Total Bilirubin 1.7 mg/dL (0.2-1.0) H 07/31/19 12:25 Direct Bilirubin 0.7 mg/dL (0.1-0.5) H 07/31/19 12:25 AST 30 IU/L (10-42) 07/31/19 12:25 ALT 15 IU/L (10-60) 07/31/19 12:25 Alkaline Phosphatase 121 IU/L (42-121) 07/31/19 12:25 Total Creatine Kinase 162 IU/L (22-269) 07/29/19 20:18 Troponin I High Sens 78.2 ng/L (2.3-19.7) H* 08/01/19 05:18 B-Natriuretic Peptide 805 pg/mL (5-100) H 08/02/19 04:25 Total Protein 7.4 g/dL (6.7-8.2) 07/31/19 12:25 Albumin 3.6 g/dL (3.2-5.5) 07/31/19 12:25 Globulin 3.8 g/dL (2.1-4.2) 07/31/19 12:25 Albumin/Globulin Ratio 1.0 (1.0-2.2) 07/29/19 20:18 Lipase 34 U/L (22-51) 07/29/19 20:18 Urine Color YELLOW 07/29/19 20:45 Urine Clarity CLEAR (CLEAR) 07/29/19 20:45 Urine pH 5.0 PH (5.0-7.5) 07/29/19 20:45 Ur Specific [place] 1.020 (1.002-1.030) 07/29/19 20:45 Urine Protein TRACE mg/dL (NEGATIVE) 07/29/19 20:45 Urine Glucose (UA) NEGATIVE mg/dL (NEGATIVE) 07/29/19 20:45 Urine Ketones NEGATIVE mg/dL (NEGATIVE) 07/29/19 20:45 Urine Occult Blood NEGATIVE (NEGATIVE) 07/29/19 20:45 Urine Nitrite NEGATIVE (NEGATIVE) 07/29/19 20:45 Urine Bilirubin NEGATIVE (NEGATIVE) 07/29/19 20:45 Urine Urobilinogen 0.2 (NORMAL) E.U./dL (NORMAL) 07/29/19 20:45 Ur Leukocyte Esterase NEGATIVE (NEGATIVE) 07/29/19 20:45 Ur Microscopic Review NOT INDICATED 07/29/19 20:45 Urine Culture Comments NOT INDICATED 07/29/19 20:45 Nasal Screen MRSA (PCR) NEGATIVE (NEGATIVE) 07/31/19 13:15 Last Dose Date 07/30/18 08/01/19 05:18 Last Dose Time 0808/01/19 05:18 Digoxin 3.5 ng/mL H* 08/01/19 05:18 Urine Opiates Screen POSITIVE (NEGATIVE) H 07/30/19 18:30 Ur Oxycodone Screen NEGATIVE (NEGATIVE) 07/30/19 18:30 Urine Methadone Screen NEGATIVE (NEGATIVE) 07/30/19 18:30 Ur Propoxyphene Screen NEGATIVE (NEGATIVE) 07/30/19 18:30 Ur Barbiturates Screen NEGATIVE (NEGATIVE) 07/30/19 18:30 Ur Tricyclics Screen NEGATIVE (NEGATIVE) 07/30/19 18:30 Ur Phencyclidine Scrn NEGATIVE (NEGATIVE) 07/30/19 18:30 Ur Amphetamine Screen NEGATIVE (NEGATIVE) 07/30/19 18:30 U Methamphetamines Scrn NEGATIVE (NEGATIVE) 07/30/19 18:30 U Benzodiazepines Scrn NEGATIVE (NEGATIVE) 07/30/19 18:30 Urine Cocaine Screen NEGATIVE (NEGATIVE) 07/30/19 18:30 U Cannabinoids Screen NEGATIVE (NEGATIVE) 07/30/19 18:30 Influenza A (Rapid) Negative (Negative) 07/29/19 20:30 Influenza B (Rapid) Negative (Negative) 07/29/19 20:30
[2019-08-02] MEDS: FUROSEMIDE 40 MG TABLET PO SCH (14:19)
[2019-08-02] MEDS: ATORVASTATIN 10 MG TABLET PO SCH (20:53)
[2019-08-03] MEDS: guaiFENesin/CODEINE 5 ML UDC PO PRN ×2 (00:09→06:41)
[2019-08-03] MEDS: SODIUM CHLORIDE FLUSH 0.9% 10 ML SYRINGE IVP SCH ×3 (00:10→16:33)
[2019-08-03] MEDS: BENZONATATE 100 MG CAPSULE PO PRN (05:20)
[2019-08-03 05:29] LABS: INR 3.3 (0.8-1.2); PT - PROTHROMBIN TIME 34.8 secs (9.9-12.6)
[2019-08-03] MEDS: FUROSEMIDE 40 MG TABLET PO SCH (06:41)
[2019-08-03] MEDS ORDERED: FUROSEMIDE 40 MG TABLET PO SCH (08:00)
[2019-08-03] MEDS ORDERED: DIGOXIN 125 MCG TABLET PO SCH (08:00)
[2019-08-03 08:28] LABS: CALCIUM 8.5 mg/dL (8.5-10.3); CREATININE 2.2 mg/dL (0.6-1.2)
[2019-08-03] MEDS ORDERED: DOCUSATE SODIUM 250 MG CAPSULE PO SCH (09:00)
[2019-08-03] MEDS ORDERED: SENNA 8.6 MG TABLET PO SCH (09:00)
[2019-08-03] MEDS: AMIODARONE 200 MG TABLET PO SCH (09:23)
[2019-08-03] MEDS: guaiFENesin 600 MG TABLET PO SCH (09:23)
[2019-08-03] MEDS: polyethylene glycoL 3350 17 GM PACKET PO SCH (09:24)
[2019-08-03] MEDS: MULTIVITAMIN W/MINERALS TABLET PO SCH (09:24)
[2019-08-03] MEDS: LEVALBUTEROL 1.25 MG/3 ML NEB INH SCH ×3 (10:15→15:23)
[2019-08-03] MEDS ORDERED: SPIRONOLACTONE 25 MG TABLET PO SCH (12:00)
[2019-08-03] MEDS: BACITRACIN ZINC OINT 28.4 GM TUBE TOP SCH (12:25)
--- NOTE | 2019-08-03 16:57 | Discharge Plan ---
Discharge Plan Problem Reviewed?: Yes Disposition: Home, Self Care Condition: Fair Prescriptions: guaiFENesin/CODEINE [Robitussin AC] 5 ml PO Q6HR PRN #60 ml PRN Reason: Cough Digoxin [Lanoxin] 125 mcg PO TuTh@1200 #15 tablet Spironolactone [Aldactone] 25 mg PO 1200 #30 tablet Diet: Low Sodium (Soft mechanical diet) Activity Restrictions: Activity as Tolerated Shower Restrictions: No Assistance Devices: Walker Instruction Topics: Guaifenesin oral solution and syrup, Carvedilol tablets, Spironolactone tablets Health Concerns: You were admitted for management of fluid overload from congestive heart failure and kidney disease. You needed to be in the ICU for IV medications which have now been adjusted to oral medications. Resume all your pre-hospital medications with the following changes: No Losartan. No Potassium. The smaller dose of Carvedilol (6.25 mg twice a day). Digoxin only twice a week (on Tuesdays and ). New Spironolactone. New Robitussin with Codeine as needed for cough. The new prescriptions were sent electronically to your [facility] pharmacy. You were tested for needing home oxygen and the order is for you to use oxygen set at: 2L per nasal cannula at rest and 3L with activity. Continues to follow a low-salt, fluid restricted diet. Elevate your legs for draining their fluid and also to help healing of the ulcers on the legs. The [facility] clinic wound nurse can see you in follow-up if needed. Prescriptions for the special covering for the leg wounds has been prescribed. Your new medications were prescribed and sent electronically to pharmacy. Plan of Treatment: As above. Please have follow-up with your PCP or Manager Drilling in the next week for any adjustment in medications or oxygen. Care Goals: Improvement in symptoms and stabilization are the goals. Assessment: Patient understands and is agreeable with the plan. No Smoking: If you smoke, Please STOP! Call for help. Follow-up with: Eliana Lundberg PA-C [Primary Care Provider] -
[2019-08-03 17:49] VITALS: BP 109/54
--- NOTE | 2019-08-03 18:10 | DISCHARGE SUMMARY ---
Discharge Summary Admit Date: 07/29/19 Discharge Date: 08/03/19 Discharging Provider: Dr Aminata Santos Primary Care Provider: ALISSON Montes Code Status: Attempt Resuscitation Condition at Discharge: Fair Discharge Disposition: 01 Home, Self Care - HPI History of Present Illness: Fropm the admission H&P of Dr Jackson Rodriguez: This is a 73-year-old male with a history of what appears to be idiopathic cardiomyopathy, chronic systolic heart failure with an EF of 15 to 20% status post ICD, history of aortic valve replacement with mechanical vs bioprosthrtic aortic valve, paroxysmal atrial fibrillation on Coumadin, chronic kidney disease who presents today complaining of a worsening cough over the past 2 to 3 days. He states his cough began about 3 days ago and he has occasional sputum production. He reports no dyspnea but states he has not gotten to ambulate as much as he would like as he has just felt a little weak and the cough has been quite bothersome. He reports that he normally sleeps on his side but lately he has been sleeping upright due to the cough. He has also noticed some worsening lower extremity edema. He reports no chest pain, fevers, chills. He denies any recent sick contacts or travel. He says that he saw his Small Arms Repairer, Dr. Velasquez who stopped his Carvedilol, but he felt better when it was restarted at "a lower dose". Patient reports he has been compliant with medications and he took Torsemide 80 mg earlier today. He states he has not really been eating much because he is in the process of getting new dentures or implants. He tells me that his previous dry weight was 165 lbs but that he is currently now 163 lbs despite his worsening lower extremity edema. He feels like he has been losing weight due to his poor oral intake. He states that his cardiomyopathy is of an unknown etiology. He denies any history of coronary disease and denies a history of CABG or stents in the past. His INR is elevated and he states this has been poorly controlled since his decreased oral intake. He reports no rece nt bleeding. In the emergency department, he was found to be afebrile with temperature of 3 6.1 C. His heart was in the 70s and he was in a paced rhythm. Blood pressure was stable at 94/71. He was initially saturating well on room air but when he ambulated, his oxygen saturation dropped significantly into the 70-80% range on room air. This improved to the mid 90% on 2 L of oxygen via nasal cannula. Lab revealed a sodium of 134, BUN of 73, creatinine of 2.7. His lactic acid is mildly elevated at 2.4. His BNP is elevated at 1197 and his troponin is 109.5. Influenza was negative. Given his hypoxia with exertion, the Hospitalist team was consulted for admission. He did receive 40 mg of IV Lasix in the emergency department. - HOSPITAL COURSE Hospital Course: (1) Acute on chronic HFrEF (heart failure with reduced ejection fraction) He was started on Mucinex and Tesselon Perles for the cough and iv diuresis was also started, all without significant effect in his primary complaint of cough. An Echo was done that showed worsened LVEF of 10% and also dilated RV with severely depressed RV function. He was therefore transferred to the ICU for a planned 3-day course of iv Dobutaminer drip, which was advised by Dr Mcfadden in discussion with the Hospitalist. Coreg and Losartan were stopped when BP was low (82 systolic) and when he was on iv Dobutamine. Spironolactone was started with no worsening of his creat at 2.0-2.2. The BNP improved slightly but his fluid balance was balanced, not negative, despite his fluid restriction orders, since he got iv fluids when he was on iv Dobutamine and iv Amiodarone (see below). The cough finally improved when the Losartan was stopped and when Robitussin with Codeine liquid was given prn. He was discharged home with this. He was kept on supplemental oxygen and had a walk oximetry test on the day of discharge: on room air he desaturated to 80%, on 2L of O2 by nc his saturation was 96%, with walk his saturation dropped to 86% and improved to 90% with O2 at 3L nc. I am ordering new home oxygen, to be set at 2L at rest and 3L with activity. (2) Ventricular fibrillation After transferring to the ICU, Coreg was put on hold and on iv Dobutamine at 2.5 mg/kg for 12 hours, while asleep and asymptomatic, telemetry revealed that he went into monomporphic VTach, which the ICD tried to over-drive pace him out of unsuccessfully, and VTach persisted. The VTach then quickly degenerated into vfib and he received a shock from his ICD which successfully returned him to a ventricular paced rhythm. His electrolytes and Mg were normal. A Dig level was checked an it was toxic at 4.3. The daily Dig was put on hold. The Dobutamine drip was stopped and he remained in the ICU and was on IV Amiodarione for 24 hours, load and drip per protocol. The Amio was then dosed orally bid for 3 days. There were no further episodes of VTach or vfib on telemetry, as he started ambulating with PT. Since the BP was low, no Coreg was resumed until discharge. His Dig 0.125 mg was resumed only to be taken on and . (3) Hypotension He runs "soft" BP and tolerates them with clear mentation. His iv Lasix was stopped and Spironolactone was started with no worsening of his creat at 2.0- 2.2. Losartan with Potassium were stopped. Using Hydralazine plus Nitrates would also be difficult with his low BP. Coreg 6.25 bid and his home Torsemide (and Metalazone) were resumed at discharge. (4) Acute kidney injury superimposed on CKD Spironolactone was started with no worsening of his creat at 2.0-2.2. The Losartan and Potassium were stopped while here and at discharge. (5) Venous stasis ulcer The [facility] Wound RN saw him yesterday and advised topical management with Xeroform bandaging covered with rolled gauze banfage, which was done here and ordered at discharge. It needs to be done every 3 days. (6) Elevated INR He claims he is on Coumadin for a mechanical AVR, but the Echo shows a bioprosthetic AVR and I do not hear mechanical valve sounds. He probably is on Coumadin for stroke prophylaxis for chronic Afib. It is unclear why the previous provider wrote that the target INR is 2.5-3.5. The Coumadin was on hold for several days to decrease from the admission INR of 4.8. (7) Chronic atrial fibrillation As above (8) S/P AVR He claims he is on Coumadin for a mechanical AVR, but the Echo shows a bioprosthetic AVR and I do not hear mechanical valve sounds. (9) Biventricular ICD (implantable cardioverter-defibrillator) in place Pacing was appropriately seen on telemetry as well as the appropriate ICD treatment of his vfib. (10) Cor pulmonale The Echo showed worsening PA pressure and the dilated RV with poor RV function. His BP will be very pre-load dependant, therefore: excessive diuresis will drop BP. RV failure in the presence of LV failure also gives him a poor 1 year prognosis. (11) COPD (chronic obstructive pulmonary disease) He described no Hx of COPD but was on a home inhaler. He got prn Xopenex nebs here. (12) Pain, dental Pain meds prn and diet was adjusted to soft. (13) BPH (benign prostatic hyperplasia) He is on his home Flomax at . - ALLERGIES Allergies/Adverse Reactions: Allergies Allergy/AdvReac Type Severity Reaction Status Date / Time No Known Drug Allergies Allergy Verified 07/29/19 19:57 - MEDICATIONS Home Medications: Ambulatory Orders Medication Instructions Recorded Confirmed RX: Warfarin [Coumadin] 5 mg PO DAILY 04/16/13 07/30/19 RX: carvediloL [Coreg] 6.25 mg PO BID 04/16/13 07/29/19 RX: Cyclobenzaprine [Flexeril] 10 mg TID PRN 07/29/19 07/29/19 RX: Digoxin [Lanoxin] 125 mcg PO DAILY 07/29/19 07/29/19 RX: Simvastatin 40 mg DAILY 07/29/19 07/29/19 RX: Torsemide 80 mg DAILY 07/29/19 07/29/19 RX: traMADol [Ultram] 50 mg QID PRN 07/29/19 07/29/19 Bismuth Tribromoph/Petrolatum 1 each TP Q3D #16 bandage 08/03/19 [Xeroform Non-Occlusive 4"X9'] RX: Digoxin [Lanoxin] 125 mcg PO TuTh@1200 #15 tablet 08/03/19 RX: Gauze Bandage [Gauze Pad] 1 each TP Q3D #16 bandage 08/03/19 RX: Spironolactone [Aldactone] 25 mg PO 1200 #30 tablet 08/03/19 RX: guaiFENesin/CODEINE 5 ml PO Q6HR PRN #60 ml 08/03/19 [Robitussin AC] - PHYSICAL EXAM AT DISCHARGE General Appearance: positive: No acute distress, Alert Eyes Bilateral: positive: Normal inspection, EOMI, Other (Temporal muscle wasting.) ENT: positive: No signs of dehydration, Other (Edentulous. Dry cough.) Neck: positive: Other ((+) JVD.) Respiratory: positive: Other (Diminishe breath sounds L base, clear lungs sounds R chest.) Cardiovascular: positive: No murmur, Irregularly irregular Abdomen: positive: Non-tender, No distention Skin: positive: Other (Dark, leathery skin) Extremities: positive: Pedal edema, Other (Venous stasis of sins. ) - LABS Result Diagrams: 08/02/19 04:25 08/03/19 04:55 - DIAGNOSTIC IMAGING Diagnostic Imaging Results: Final report reviewed - FOLLOW UP Follow Up: See PCP and/or Small Arms Repairer in 1-2 weeks. - TIME SPENT Time Spent in Discharge (Minutes): 60
[2019-08-04] MEDS ORDERED: carvediloL 3.125 MG TABLET PO SCH (09:00)
[2019-08-08] MEDS ORDERED: DIGOXIN 125 MCG TABLET PO SCH (12:00)
== END 2019-08-03 19:53 | disposition home or self-care (01) | DRG 291 ==
LOC: EDUNIT# → ED 19:48 → MS3 21:29 → ICU 07-31 13:09 → MS2 08-02 12:21
PROVIDERS: ADMIT Internal Medicine; ATTEND Internal Medicine
PROC: 02HV33Z Insertion of Infusion Device into Superior Vena Cava, Percutaneous Approach (ICD-10-PCS; principal; 2019-07-31)
DX: I50.9 Heart failure, unspecified (principal); I13.0 Hypertensive heart and chronic kidney disease with heart failure and stage 1 through stage 4 chronic kidney disease, or unspecified chronic kidney disease; R09.02 Hypoxemia; I49.01 Ventricular fibrillation; I50.23 Acute on chronic systolic (congestive) heart failure; N17.9 Acute kidney failure, unspecified; L97.819 Non-pressure chronic ulcer of other part of right lower leg with unspecified severity; L97.829 Non-pressure chronic ulcer of other part of left lower leg with unspecified severity; I87.8 Other specified disorders of veins; I48.0 Paroxysmal atrial fibrillation; I95.9 Hypotension, unspecified; N18.9 Chronic kidney disease, unspecified; I27.81 Cor pulmonale (chronic); J44.9 Chronic obstructive pulmonary disease, unspecified; I42.8 Other cardiomyopathies; E78.00 Pure hypercholesterolemia, unspecified; N40.1 Benign prostatic hyperplasia with lower urinary tract symptoms; R35.0 Frequency of micturition; R35.1 Nocturia; R39.15 Urgency of urination; R79.1 Abnormal coagulation profile; K08.89 Other specified disorders of teeth and supporting structures; R79.89 Other specified abnormal findings of blood chemistry; Z99.81 Dependence on supplemental oxygen; Z79.01 Long term (current) use of anticoagulants; Z95.2 Presence of prosthetic heart valve; Z95.1 Presence of aortocoronary bypass graft; Z95.810 Presence of automatic (implantable) cardiac defibrillator; Z87.891 Personal history of nicotine dependence
CPT/HCPCS: 36415; 71045; 80048; 80053; 80076; 80162; 81003; 82248; 82550; 83605; 83690; 83735; 83880; 84100; 84484; 85025; 85610; 85730; 87040; 87150; 87275; 87276; 93005; 93306; 93970; 94640; 94761; 96374; 97162; 97165; 97530; 99285; 99291; A9270; J0282; J1250; J1940; 80306; 81001; 87086

== ENCOUNTER 2019-08-07 17:30 | Outpatient (CLI) | payer MEDICARE, OTHER ==
[2019-08-08 12:24] LABS: BASOPHILS % (AUTO) 0.4 %; EOSINOPHILS # (AUTO) 0.1 10^3/uL (0.0-0.7); EOSINOPHILS % (AUTO) 1.2 %; HGB - HEMOGLOBIN 12.9 g/dL (14.0-18.0); LYMPHOCYTES # (AUTO) 0.7 10^3/uL (1.5-3.5); LYMPHOCYTES % (AUTO) 10.4 %; MEAN CORPUSCULAR HEMOGLOBIN 29.3 pg (27.0-31.0); MEAN CORPUSCULAR HGB CONC 32.5 g/dL (32.0-36.0); MEAN CORPUSCULAR VOLUME 90.2 fL (80.0-94.0); MEAN PLATELET VOLUME 12.8 fL (7.4-11.4); MONOCYTES # (AUTO) 0.9 10^3/uL (0.0-1.0); MONOCYTES % (AUTO) 13.2 %; NEUTROPHILS # (AUTO) 5.1 10^3/uL (1.5-6.6); NEUTROPHILS % (AUTO) 73.2 %; PLT - PLATELET COUNT 231 10^3/uL (130-450); RED CELL DISTRIBUTION WIDTH 18.9 % (12.0-15.0); WHITE BLOOD COUNT 6.9 x10^3/uL (4.8-10.8)
[2019-08-08 13:05] LABS: ALBUMIN 3.2 g/dL (3.2-5.5); ALBUMIN/GLOBULIN RATIO 0.8 (1.0-2.2); ALKALINE PHOSPHATASE 129 IU/L (42-121); ALT ALANINE AMINOTRANSFERASE 25 IU/L (10-60); AST ASPARTATE AMINOTRANSFERASE 35 IU/L (10-42); CARBON DIOXIDE - CO2 27 mmol/L (21-32); CHLORIDE 90 mmol/L (101-111); CREATININE 2.8 mg/dL (0.6-1.2); DIGOXIN 0.7 ng/mL; GLUCOSE 113 mg/dL (70-100); SODIUM 133 mmol/L (135-145)
[2019-08-08 13:22] LABS: BUN - BLOOD UREA NITROGEN 107 mg/dL (6-20)
== END 2019-08-07 23:59 | disposition home or self-care (01) ==
LOC: LAB.WCP 17:30
PROVIDERS: ATTEND Physician Assistant Medical
DX: I25.10 Atherosclerotic heart disease of native coronary artery without angina pectoris (principal)
CPT/HCPCS: 36415; 80053; 80162; 85025